=== PATIENT | male | born 1925 | race Caucasian/White ===

== ENCOUNTER 2016-08-23 05:10 | Inpatient (IN) | payer MEDICARE ==
[2016-08-23] VITALS (13 sets, daily range): BP systolic 101–149; BP diastolic 53–63; PULSE 83–114; RESP 15–20; TEMP 97.4–98.9; O2SAT 94–98
[~2016-08-23] VITALS: Ht 182.9 cm; Wt 75.0 kg
[~2016-08-23 05:10] MED LIST: ASPI81TA11 PO; CYCL1TAB29 PO; DILT31TA PO; FLEEENE3 PR; LIPI40TA PO; METO25TA3 PO; OYST500T11 PO; VITA100018 PO
[2016-08-23] MEDS ORDERED: POTA10TA2 PO (05:24)
[2016-08-23] MEDS ORDERED: ZETI10TA5 PO (05:24)
[2016-08-23] MEDS ORDERED: TRAM50TA PO (05:24)
[2016-08-23] MEDS ORDERED: SODIUM CHLORIDE 0.9% FLUSH 5 ML FLUSH IVF PRN (05:30)
[2016-08-23] MEDS ORDERED: PANTOPRAZOLE INJ 80 MG in SODIUM CHLORIDE 0.9% INJ 35 ML IV ONE (05:30)
[2016-08-23] MEDS: PANTOPRAZOLE INJ 80 MG in SODIUM CHLORIDE 0.9% INJ 100 ML IV SCH ×2 (05:46→15:55)
--- NOTE | 2016-08-23 05:54 | PD ---
HPI Chief Complaint: GI Complaint Time Seen by Provider: 05:22 Travel History International Travel<30 days: No Contact w/Intl Traveler<30days: No Traveled to known affect area: No History of Present Illness HPI 89-year-old male arrives from rehabilitation facility due to coffee-ground emesis and bright red bloody stool. GI bleed was first observed just prior to EMS arrival, at approximately 4:30 in the morning. EMS reports the patient became diaphoretic and minimally responsive for about 4 minutes or so. No rhythm strip was obtainable at that time. Heart rate on scene approximately 100 with a blood pressure approximately 120/60. Patient began speaking sentences following the brief interval apparent altered mental status/loss of consciousness. No focal deficit observed according to EMS. Patient takes aspirin however no other anticoagulant is listed. Pt is a DNR. PFSH Past Medical History Cancer: No Cardiovascular Problems: Yes High Cholesterol: Yes Cerebrovascular Accident: Yes Diminished Hearing: No Endocrine: No Gastrointestinal Disorders: Yes (hx of enema use, sometimes daily.) Genitourinary: No Hypertension: Yes Immune Disorder: No Musculoskeletal: No Neurologic: No Psychiatric: No Reproductive: No Respiratory: No Tetanus Vaccination: < 5 Years Influenza Vaccination: Yes Past Surgical History Abdominal Surgery: No Cardiac Surgery: No Ear Surgery: No Endocrine Surgery: No Eye Surgery: Yes Genitourinary Surgery: No Gynecologic Surgery: No Oral Surgery: No Thoracic Surgery: No Other Surgery: Yes Social History Alcohol Use: No Tobacco Use: No Substance Use: No Allergies-Medications (Allergen,Severity, Reaction): Coded Allergies: No Known Allergies (Verified , 08/23/16) Reported Meds & Prescriptions Reported Meds & Active Scripts Active Fleet Enema Rectal (Sodium Phosphates Rectal) 7-19 Gm/118 Ml Enem 133 Ml PA UNSCH PRN Oyster Shell Calcium (Oyster Shell) 500 Mg Tab 500 Mg PO Q12HR Metoprolol Tartrate 25 Mg Tab 25 Mg PO Q12HR Cardizem (Diltiazem HCl) 30 Mg Tab 30 Mg PO QID Vitamin D3 (Cholecalciferol) 1,000 Unit Tab 2,000 Units PO DAILY Lipitor (Atorvastatin Calcium) 40 Mg Tab 40 Mg PO HS Aspirin EC (Aspirin) 81 Mg Tabdr 162 Mg PO DAILY Reported Potassium Chloride ER (Potassium Chloride) 10 Meq Tab 10 Meq PO DAILY Tramadol (Tramadol HCl) 50 Mg Tab 50 Mg PO Q4H PRN Zetia (Ezetimibe) 10 Mg Tab 10 Mg PO DAILY Review of Systems Except as stated in HPI: all other systems reviewed are Neg General / Constitutional: No: Fever, Chills Physical Exam Narrative GENERAL: Well-nourished well-developed 89-year-old male no acute distress SKIN: Warm and dry. HEAD: Atraumatic. Normocephalic. EYES: Pupils equal and round. No scleral icterus. No injection or drainage. ENT: No nasal bleeding or discharge. Mucous membranes pink and moist. NECK: Trachea midline. No JVD. CARDIOVASCULAR: Heart rate regular. Mild tachycardia. RESPIRATORY: No accessory muscle use. Clear to auscultation. Breath sounds equal bilaterally. GASTROINTESTINAL: Abdomen soft, non-tender, nondistended. Hepatic and splenic margins not palpable. MUSCULOSKELETAL: No obvious deformities. No clubbing. No cyanosis. No edema. NEUROLOGICAL: Awake and alert. No obvious cranial nerve deficits. Motor grossly within normal limits. Normal speech. PSYCHIATRIC: Appropriate mood and affect; insight and judgment normal. Data Data Last Documented VS Vital Signs Date Time Temp Pulse Resp B/P Pulse Ox O2 Delivery O2 Flow Rate FiO2 08/23/16 05:17 16 08/23/16 05:15 97.7 96 126/59 95 Orders Basic Metabolic Panel (Bmp) (08/23/16 05:22) Complete Blood Count With Diff (08/23/16 05:22) Prothrombin Time / Inr (Pt) (08/23/16 05:22) Act Partial Throm Time (Ptt) (08/23/16 05:22) Type And Screen (08/23/16 05:22) Ecg Monitoring (08/23/16 05:22) Iv Access Insert/Monitor (08/23/16 05:22) Oximetry (08/23/16 05:22) Sodium Chloride 0.9% Flush (Ns Flush) (08/23/16 05:30) Pantoprazole Inj (Protonix Inj) (08/23/16 05:30) Pantoprazole Inj (Protonix Inj) (08/23/16 05:30) Chest, Single Ap (08/23/16 ) Urinalysis - C+S If Indicated (08/23/16 06:12) Blood Product Administration .UPON TRANSFUSION (08/23/16 06:12) Red Blood Cells (Rbc) (08/23/16 05:40) Protein Corrected Calcium(Pcc) (08/23/16 05:40) Red Blood Cells (Rbc) (08/23/16 06:38) Sodium Chlor 0.9% 250 Ml Inj (Ns 250 Ml (08/23/16 06:45) Admit Order (Ed Use Only) (08/23/16 06:43) Calcium Gluconate Inj (Calcium Gluconate (08/23/16 07:00) Ceftriaxone Inj (Rocephin Inj) (08/23/16 07:00) Consult Gastroenterology (08/23/16 ) Labs Laboratory Tests Test 08/23/16 05:40 White Blood Count 16.5 TH/MM3 Red Blood Count 2.66 MIL/MM3 Hemoglobin 8.2 GM/DL Hematocrit 25.5 % Mean Corpuscular Volume 95.6 FL Mean Corpuscular Hemoglobin 30.9 PG Mean Corpuscular Hemoglobin 32.3 % Concent Red Cell Distribution Width 14.3 % Platelet Count 248 TH/MM3 Mean Platelet Volume 9.0 FL Neutrophils (%) (Auto) 79.4 % Lymphocytes (%) (Auto) 12.3 % Monocytes (%) (Auto) 7.7 % Eosinophils (%) (Auto) 0.1 % Basophils (%) (Auto) 0.5 % Neutrophils # (Auto) 13.1 TH/MM3 Lymphocytes # (Auto) 2.0 TH/MM3 Monocytes # (Auto) 1.3 TH/MM3 Eosinophils # (Auto) 0.0 TH/MM3 Basophils # (Auto) 0.1 TH/MM3 CBC Comment DIFF FINAL Differential Comment Prothrombin Time 14.7 SEC Prothromb Time International 1.3 RATIO Ratio Activated Partial 28.6 SEC Thromboplast Time Sodium Level 141 MEQ/L Potassium Level 4.7 MEQ/L Chloride Level 107 MEQ/L Carbon Dioxide Level 20.2 MEQ/L Anion Gap 14 MEQ/L Blood Urea Nitrogen 40 MG/DL Creatinine 1.65 MG/DL Estimat Glomerular Filtration 40 ML/MIN Rate Random Glucose 115 MG/DL Calcium Level 6.3 MG/DL Blood Type A POSITIVE Antibody Screen NEGATIVE Crossmatch Leukocyte-Reduced Red Blood Cells Blood Bank Comment MDM Medical Decision Making Medical Screen Exam Complete: Yes Emergency Medical Condition: Yes Medical Record Reviewed: Yes Differential Diagnosis Lower GI bleed, upper GI bleed, anemia, arrhythmia, seizure, TIA, electrolyte imbalance, polypharmacy Narrative Course EKG reveals a sinus rhythm with rate of 92 normal axis and intervals artifact in lead III is observed CBC & BMP Diagram 08/23/16 05:40 Calcium 6.3 INR 1.3 1 unit PRBCs ordered. Protonix bolus and Protonix drip initiated. Calcium ordered. Admission for blood transfusion monitoring and GI evaluation. D/w Dr Haque. Critical Care Narrative Aggregate critical care time was 35 minutes. Time to perform other separately billable procedures was not included in the critical care time. My time did not include minutes spent treating any other patients simultaneously or on activities that did not directly contribute to the patient's treatment. The services I provided to this patient were to treat and/or prevent clinically significant deterioration that could result in: Hemorrhagic shock, multiorgan failure I provided critical care services requiring my management, as noted below: Chart data review, documentation time, medication orders and management, vital sign assessments/reviewing monitor data, ordering and reviewing lab tests, ordering and interpreting/reviewing x-rays and diagnostic studies, care of the patient and discussion of the patient with the admitting physicians. Diagnosis Primary Impression: GI bleed Qualified Code: K92.2 - Gastrointestinal hemorrhage, unspecified gastrointestinal hemorrhage type Additional Impression: Hypocalcemia Admitting Information Admitting Physician Requests: Bunny Quiroga MD Aug 23, 2016 05:54
[2016-08-23 05:55] LABS: AUTOMATED NEUTROPHIL # 13.1 TH/MM3 (1.8-7.7); BASOPHIL # 0.1 TH/MM3 (0-0.2); BASOPHIL % 0.5 % (0.0-2.0); EOSINOPHIL % 0.1 % (0.0-4.0); HEMATOCRIT 25.5 % (39.0-51.0); HEMO FLAGS DIFF FINAL; LYMPH % 12.3 % (9.0-44.0); MEAN CELL VOLUME 95.6 FL (80.0-100.0); MEAN CORPUSCULAR HEMOGLOBIN 30.9 PG (27.0-34.0); MEAN CORPUSCULAR HGB CONC 32.3 % (32.0-36.0); MONO % 7.7 % (0.0-8.0); NEUT % 79.4 % (16.0-70.0); PLATELET COUNT 248 TH/MM3 (150-450); RED BLOOD COUNT 2.66 MIL/MM3 (4.50-5.90); RED CELL DISTRIBUTION WIDTH 14.3 % (11.6-17.2); WHITE BLOOD COUNT 16.5 TH/MM3 (4.0-11.0)
--- NOTE | 2016-08-23 06:22 | RADRPT ---
EXAM DATE/TIME: 08/23/2016 04:08 [facility] COMPARISON: CT PULMONARY ANGIOGRAM, July 02, 2016, 12:46. CHEST SINGLE AP, October 18, 2012, 14:07. CHEST SIN GLE AP, July 10, 2016, 9:26. INDICATIONS : Abdominal cramping. MEDICAL HISTORY : Hypertension. Cardiovascular disease. SURGICAL HISTORY : None. ENCOUNTER: Initial ACUITY: 1 day PAIN SCORE: 0/10 LOCATION: Bilateral chest FINDINGS: Right lung is clear. There is patchy opacity in the left lung which is stable. Cardiomegaly and aorti c calcification. Pleural-based calcification left lung. CONCLUSION: Improved aeration on the right otherwise stable. Sumit Villafuerte MD on August 23, 2016 at 6:20 Board Certified Radiologist. This report was verified electronically.
[2016-08-23 06:26] LABS: APTT (PATIENT) 28.6 SEC (24.3-30.1); INTERNATIONAL NORMALIZED RATIO 1.3 RATIO; PROTHROMBIN TIME - PATIENT 14.7 SEC (9.8-11.6)
[2016-08-23 06:35] LABS: BICARBONATE 20.2 MEQ/L (21.0-32.0); POTASSIUM 4.7 MEQ/L (3.5-5.1)
[2016-08-23] MEDS ORDERED: SODIUM CHLOR 0.9% 250 ML INJ 250 ML IV ONE (06:45)
[2016-08-23] MEDS ORDERED: CALCIUM GLUCONATE 10% 1 GM/10 ML VIAL IV PUSH ONE (07:00)
[2016-08-23] MEDS ORDERED: cefTRIAXone INJ 1,000 MG in SODIUM CHLORIDE 0.9% INJ 100 ML IV ONE (07:00)
[2016-08-23 07:04] LABS: CALCIUM-PROTEIN CORRECTED 7.1 MG/DL (8.5-10.1)
--- NOTE | 2016-08-23 08:04 | EKG ---
Date Performed: 08/23/2016 Time Performed: 05:21:34 PTAGE: 89 years EKG: Marked baseline artifact Sinus rhythm MINIMAL ST DEPRESSION BORDERLINE ECG COMPARED TO PRIOR ELECTROCARDIOGRAM, Sinus rhythm has replaced atrial fibrillation. PREVIOUS TRACING : 07/03/2016 05.11 DOCTOR: Cyrus Kilgore Interpretating Date/Time 08/23/2016 08:03:21
--- NOTE | 2016-08-23 09:24 | PD.CONS ---
HPI History of Present Illness This is a 89 year old male with past medical history of HTN, A-fib, CKD who was sent from [facility] and rehab due to acute episode of coffee-ground emesis and bright red bloody stools at approximately 4:30 in the morning. Patient takes aspirin, he is not any other anticoagulant. Patient is alert and oriented, he denies vomiting, however, states the rectal bleeding was very bad and he had liquids stools last night. According to nurse, patient had one bloody stools in the ED, this was dark maroon about 300 ml. No more bleeding so far, patient denies any abdomen pain, fever, chills, shortness of breath, or difficulty breathing. No previous history of this. Hgb is 8.2, he received 2 units of blood , no repeat labs yet. He never had EGD/colonoscopy. Daughter in the room and case was discussed with her in details. (Evelyn Barnes) PFSH Past Medical History ME HTN A-fib CKD Past Surgical History eye surgery (Evelyn Barnes) Coded Allergies: No Known Allergies (Verified , 08/23/16) Medications Current Medications Medications (Trade) Dose Ordered Sig/Sana Route Start Time Stop Time Status Last Admin IV Flush 2 ml 2 ml UNSCH PRN IVF 08/23/16 05:30 Pantoprazole Sodium 80 mg/ Sodium Chloride 100 ml @ 10 mls/hr Q10H IV 08/23/16 05:30 08/23/16 05:46 (NS 250 ml Inj) 250 ml @ 15 mls/hr ONCE ONCE IV 08/23/16 06:45 08/23/16 23:24 Family History Non contributory Social History Denies smoking Drinks on occasions (Evelyn Barnes) Review of Systems Constitutional: DENIES: Fever, Chills Eyes: DENIES: Double Vision Ears, nose, mouth, throat: DENIES: Hoarseness Respiratory: DENIES: Shortness of breath Cardiovascular: DENIES: Lower Extremity Edema Gastrointestinal: COMPLAINS OF: Bloody stools, Nausea, Vomiting, Hematemesis, DENIES: Abdominal pain, Black stools, Constipation, Diarrhea, Difficulty Swallowing, Anorexia, Odynophagia, Swelling of Abdomen, Heartburn Genitourinary: DENIES: Hematuria Musculoskeletal: DENIES: Neck pain Integumentary: DENIES: Jaundice Hematologic/lymphatic: DENIES: Bruising Immunologic/allergic: DENIES: Eczema Neurologic: DENIES: Abnormal gait Psychiatric: DENIES: Anxiety (Evelyn BarnesP) GI Exam Vitals I&O Vital Signs Date Time Temp Pulse Resp B/P Pulse Ox O2 Delivery O2 Flow Rate FiO2 08/23/16 08:30 88 16 110/59 98 Nasal Cannula 2 08/23/16 07:00 96 Room Air 08/23/16 07:00 92 20 104/53 96 Room Air 08/23/16 05:17 16 08/23/16 05:15 97.7 96 16 126/59 95 Imaging Last Impressions Chest X-Ray 08/23/16 0000 Signed Impressions: Service Date/Time: August 04:08 - CONCLUSION: Improved aeration on the right otherwise stable. Sumit Villafuerte MD Laboratory Test 08/23/16 08/23/16 05:40 06:38 White Blood Count 16.5 TH/MM3 Red Blood Count 2.66 MIL/MM3 Hemoglobin 8.2 GM/DL Hematocrit 25.5 % Mean Corpuscular Volume 95.6 FL Mean Corpuscular Hemoglobin 30.9 PG Mean Corpuscular Hemoglobin 32.3 % Concent Red Cell Distribution Width 14.3 % Platelet Count 248 TH/MM3 Mean Platelet Volume 9.0 FL Neutrophils (%) (Auto) 79.4 % Lymphocytes (%) (Auto) 12.3 % Monocytes (%) (Auto) 7.7 % Eosinophils (%) (Auto) 0.1 % Basophils (%) (Auto) 0.5 % Neutrophils # (Auto) 13.1 TH/MM3 Lymphocytes # (Auto) 2.0 TH/MM3 Monocytes # (Auto) 1.3 TH/MM3 Eosinophils # (Auto) 0.0 TH/MM3 Basophils # (Auto) 0.1 TH/MM3 CBC Comment DIFF FINAL Differential Comment Prothrombin Time 14.7 SEC Prothromb Time International 1.3 RATIO Ratio Activated Partial 28.6 SEC Thromboplast Time Sodium Level 141 MEQ/L Potassium Level 4.7 MEQ/L Chloride Level 107 MEQ/L Carbon Dioxide Level 20.2 MEQ/L Anion Gap 14 MEQ/L Blood Urea Nitrogen 40 MG/DL Creatinine 1.65 MG/DL Estimat Glomerular Filtration 40 ML/MIN Rate Random Glucose 115 MG/DL Calcium Level 6.3 MG/DL Protein Corrected Calcium 7.1 MG/DL Total Protein 5.4 GM/DL Blood Type A POSITIVE A POSITIVE Antibody Screen NEGATIVE Crossmatch Leukocyte-Reduced Leukocyte-Reduced Red Blood Red Blood Cells Cells Blood Bank Comment Physical Examination HEENT: normocephalic; atraumatic; no jaundice. Throat is clear. NECK: Neck is supple, no JVD, no lymphadenopathy. CHEST: Chest is clear to auscultation and percussion. CARDIAC: Regular rate and rhythm with no murmur gallop or rubs. ABDOMEN: Soft, nondistended, nontender; no hepatosplenomegaly; bowel sounds are present in all four quadrants. EXTREMITIES: No clubbing, cyanosis, or edema. SKIN: Normal; no rash; no jaundice. 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 (Evelyn Barnes) Assessment and Plan Plan - Acute GI bleed/coffee ground emesis/ bloody stools started last night- Hgb is 8.2, he received 2 units of blood, no repeat labs yet. He never had EGD/ colonoscopy. Daughter in the room and case was discussed with her in details. Hemodynamically stable - HTN, CKD per attending Plan: - Clear liquids - EGD/colonoscopy in the am, details were discussed with daughter in room - cesarytely today - NPO mn - Monitor hh - Transfuse as needed - Notify GI for active bleed - Patient is seen and examined by Dr. Jimenes and myself and this note is written on his behalf. (Evelyn Barnes) Physician Comments Seen and examined with LELAND, came in for gi bleed. No active bleeding at this time. EGD/Colonoscopy tomorrow. Transfuse as needed, monitor H/H. Discussed with Pt. and daughter at the bedside. Thankyou (Adam Jimenes MD) Evelyn Barnes Aug 23, 2016 09:24 Adam Jimenes MD Aug 23, 2016 16:37
[2016-08-23] MEDS ORDERED: ENALAPRILAT 1.25 MG/ML VIAL IV PUSH PRN (09:30)
[2016-08-23] MEDS ORDERED: ONDANSETRON HCL 4 MG/2 ML VIAL IVP PRN (09:30)
[2016-08-23] MEDS ORDERED: SODIUM CHLORIDE 0.9% FLUSH 5 ML FLUSH FLUSH PRN (09:30)
[2016-08-23] MEDS ORDERED: NALOXONE HCL 0.4 MG/ML AMP IV PRN (09:30)
--- NOTE | 2016-08-23 13:50 | MB ---
cc: PRIMO OVALLE DO DATE OF CONSULTATION: August 23, 2016 REASON FOR CONSULTATION Risk assessment with GI bleed. HISTORY OF PRESENT ILLNESS Bunny Sigala is a pleasant 89-year-old male that I see in the office, who presented to [facility] on August 23, 2016 after having an acute episode of coffee-ground emesis and bloody stools at 4:30 this morning. I originally met Bunny back in June when he came in with an episode of atrial fibrillation and at that time was found to have an elevated troponin. We attempted to treat both medically and he was discharged on aspirin. I recently had seen him in the office and he has been doing well with physical therapy. He does have a break in his neck for which orthopedics felt that he may need surgery for. Had recently seen him for risk assessment before surgery and he underwent stress testing in my office. He did have a small area of mild to moderate ischemia of the inferior wall on the stress test. In seeing him at this time he is currently hemodynamically stable without chest pain or shortness of breath. Around 04:30 this morning per the records Bunny had a bloody stool and then had one episode of coffee-ground emesis. While in the emergency room he had one episode of a dark maroon stool. He is currently receiving blood at this time. PAST MEDICAL HISTORY 1. Myocardial infarction (June 2016). 2. Hypertension. 3. Paroxysmal atrial fibrillation. 4. Chronic kidney disease. 5. 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 6. Questionable history of TIA. PAST SURGICAL HISTORY Eye surgery. ALLERGIES NO KNOWN DRUG ALLERGIES. MEDICATIONS 1. Aspirin 81 mg daily. 2. Metoprolol tartrate 25 mg b.i.d. 3. Cardizem 30 mg q.i.d. 4. Zetia 10 mg daily. 5. Lipitor 40 mg every night. 6. Aspirin 162 mg daily. 7. Tramadol 50 mg every 4 hours as needed for pain. 8. Potassium 10 mEq daily. FAMILY HISTORY Denies premature coronary artery disease or sudden cardiac within the family. SOCIAL HISTORY The patient previously lived alone and did well with his activities of daily living. After his last event he has been in rehab. Denies tobacco or alcohol use. REVIEW OF SYSTEMS 14 systems were reviewed in the emergency room records and above pertinent positives and negatives above, otherwise negative. PHYSICAL EXAMINATION VITAL SIGNS: Temperature 98.1, heart rate 96, blood pressure 133/61, respirations 15, pulse ox 95% on 1 liter. GENERAL: In general the patient appears well, in no acute distress, alert, awake and oriented x3. HEENT: Extraocular muscles intact. Mucous membranes moist. NECK: Neck brace in place. HEART: Heart is regular rate and rhythm. Positive first and second heart sounds with no murmurs, gallops or rubs. PMI is nondisplaced. LUNGS: Clear to auscultation bilaterally. No wheezes, rales or rhonchi. ABDOMEN: Soft, nontender, nondistended. No organomegaly noted. EXTREMITIES: Show no clubbing, cyanosis or edema. Femoral and distal pulses intact bilaterally. NEUROLOGICALLY: No focal deficits. SKIN: Warm, dry and intact. OSTEOPATHIC: No kyphoscoliosis, lordosis or paraspinal tender points. LABORATORY FINDINGS Hemoglobin 8.2, hematocrit 25.5, platelets 248. Potassium 4.7, BUN 40, creatinine 1.65. IMPRESSION 1. Acute GI bleed most likely from a upper GI source. 2. Recent myocardial infarction (June 2016) which is currently being treated medically. 3. Recent stress test in my office (August 2016) showing a small area of mild to moderate perfusion defect in the basal and mid inferior wall, felt to be a low intermediate risk stress test. 4. Ejection fraction 55-60% with normal wall motion by echocardiogram (July 11, 2016). 5. Anemia due to GI bleed. 6. Leukocytosis most likely reactive. 7. 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 8. Paroxysmal atrial fibrillation for which the patient is on aspirin for anticoagulation. RECOMMENDATIONS 1. Bunny needs to undergo a upper and lower scope by GI due to his bleed. I feel that this is imperative as he is extremely symptomatic. 2. From a cardiovascular standpoint he would be moderate risk for the procedure and may proceed. He did have a recent myocardial infarction but since then had a stress test in my office which is a low the intermediate risk stress test. He has also been doing physical therapy which his daughter and I have talked about many times and it sounds that he is doing greater than 4 mets without chest pain or shortness of breath. 3. Once he is stabilized and blood pressure remains in a normal range, would try to get his metoprolol started again in case he does go back into atrial fibrillation. 4. Further recommendations will be made after upper and lower GI scoping. Thank you for allowing me to see Bunny Sigala, if there are any questions, please do not hesitate to call. Primo Ovalle DO VGP/TLL /12:39 PM /1:22 PM
--- NOTE | 2016-08-23 13:56 | HHI.HP ---
[facility] [place] Physician Garfield Borrego MD Admission Diagnosis GIB, Acute Anemia Diagnoses: (1) GI bleed (2) Anemia due to blood loss, acute (3) Hypocalcemia (4) CKD (chronic kidney disease) (5) Atrial fibrillation with rapid ventricular response (6) Benign hypertension (7) Hyperlipidemia (8) Leukocytosis Chief Complaint: GI bleed Travel History International Travel<30 Days: No Contact w/Intl Traveler <30 Da: No Traveled to Known Affected Are: No History of Present Illness 89-year-old male with a history of atrial fibrillation and currently on aspirin was brought to the ED for evaluation of an acute onset of GI bleed this morning as patient has episode of coffee-ground emesis as well as bright red blood per rectum. Patient has some mild abdominal pain without any radiation. He denies any associated shortness of breath or chest pain. Patient denies any prior history of GI bleed. Review of Systems Other Other 12 systems reviewed and are negative except for the one mentioned in history of present illness Past Family Social History Past Medical History [place] HTN Hyperlipidemia A-fib CKD Past Surgical History eye surgery Reported Medications 1. Aspirin 81 mg daily. 2. Metoprolol tartrate 25 mg b.i.d. 3. Cardizem 30 mg q.i.d. 4. Zetia 10 mg daily. 5. Lipitor 40 mg every night. 6. Aspirin 162 mg daily. 7. Tramadol 50 mg every 4 hours as needed for pain. 8. Potassium 10 mEq daily. Allergies: Coded Allergies: No Known Allergies (Verified , 08/23/16) Family History Dad had Pancreatic cancer Mother had lung cancer Social History Denies smoking Drinks on occasions Physical Exam Vital Signs Vital Signs Date Time Temp Pulse Resp B/P Pulse Ox O2 Delivery O2 Flow Rate FiO2 08/23/16 13:30 98.2 94 16 149/63 96 Nasal Cannula 1 08/23/16 12:30 98.3 85 16 125/60 96 Nasal Cannula 1 08/23/16 12:15 96 15 133/61 95 Nasal Cannula 1 08/23/16 12:00 90 16 122/59 95 Nasal Cannula 08/23/16 10:50 98.1 83 15 119/57 95 Nasal Cannula 1 08/23/16 10:35 98.1 92 15 104/57 96 Nasal Cannula 1 08/23/16 08:30 88 16 110/59 98 Nasal Cannula 2 08/23/16 07:00 96 Room Air 08/23/16 07:00 92 20 104/53 96 Room Air 08/23/16 05:17 16 08/23/16 05:15 97.7 96 16 126/59 95 Physical Exam GENERAL: This is a well-nourished, well-developed patient, in no apparent distress. SKIN: No rashes, ecchymoses or lesions. Cool and dry. HEAD: Atraumatic. Normocephalic. No temporal or scalp tenderness. EYES: Pupils equal round and reactive. Extraocular motions intact. No scleral icterus. No injection or drainage. ENT: Nose without bleeding, purulent drainage or septal hematoma. Throat without erythema, tonsillar hypertrophy or exudate. Uvula midline. Airway patent. NECK: Trachea midline. No JVD or lymphadenopathy. Supple, nontender, no meningeal signs. CARDIOVASCULAR: Regular rate and rhythm without murmurs, gallops, or rubs. RESPIRATORY: Clear to auscultation. Breath sounds equal bilaterally. No wheezes , rales, or rhonchi. GASTROINTESTINAL: Abdomen soft, non-tender, nondistended. No hepato-splenomegaly , or palpable masses. No guarding. MUSCULOSKELETAL: Extremities without clubbing, cyanosis, or edema. No joint tenderness, effusion, or edema noted. No calf tenderness. Negative Homans sign bilaterally. NEUROLOGICAL: Awake and alert. Cranial nerves II through XII intact. Motor and sensory grossly within normal limits. Five out of 5 muscle strength in all muscle groups. Normal speech. Laboratory Laboratory Tests Test 08/23/16 08/23/16 08/23/16 05:40 06:38 09:20 White Blood Count 16.5 Red Blood Count 2.66 Hemoglobin 8.2 Hematocrit 25.5 Mean Corpuscular Volume 95.6 Mean Corpuscular Hemoglobin 30.9 Mean Corpuscular Hemoglobin 32.3 Concent Red Cell Distribution Width 14.3 Platelet Count 248 Mean Platelet Volume 9.0 Neutrophils (%) (Auto) 79.4 Lymphocytes (%) (Auto) 12.3 Monocytes (%) (Auto) 7.7 Eosinophils (%) (Auto) 0.1 Basophils (%) (Auto) 0.5 Neutrophils # (Auto) 13.1 Lymphocytes # (Auto) 2.0 Monocytes # (Auto) 1.3 Eosinophils # (Auto) 0.0 Basophils # (Auto) 0.1 CBC Comment DIFF FINAL Differential Comment Prothrombin Time 14.7 Prothromb Time International 1.3 Ratio Activated Partial 28.6 Thromboplast Time Sodium Level 141 Potassium Level 4.7 Chloride Level 107 Carbon Dioxide Level 20.2 Anion Gap 14 Blood Urea Nitrogen 40 Creatinine 1.65 Estimat Glomerular Filtration 40 Rate Random Glucose 115 Calcium Level 6.3 Protein Corrected Calcium 7.1 Total Protein 5.4 Blood Type A POSITIVE A POSITIVE A POSITIVE Antibody Screen NEGATIVE Crossmatch Leukocyte-Reduced Leukocyte-Reduced Red Blood Red Blood Cells Cells Blood Bank Comment Result Diagram: 08/23/16 0540 08/23/16 0540 Imaging Last Impressions Chest X-Ray 08/23/16 0000 Signed Impressions: Service Date/Time: August 04:08 - CONCLUSION: Improved aeration on the right otherwise stable. Sumit Villafuerte MD Assessment and Plan Problem List: (1) GI bleed ICD Code: K92.2 Status: Acute (2) Anemia due to blood loss, acute ICD Code: D62 Status: Acute (3) CKD (chronic kidney disease) ICD Code: N18.9 Status: Acute (4) Atrial fibrillation with rapid ventricular response ICD Code: I48.91 Status: Acute Assessment and Plan 89-year-old male with 1-Acute GI bleed: Gastroenterology has been consulted and plan for panendoscopy 08/24/16. Currently on PPI drip and consider adding octreotide. Continue H&H monitoring. Hold aspirin 2-Anemia of acute blood loss: Transfused 2 units of blood or blood cell monitor H&H. Check iron profile 3-History of atrial fibrillation: Cardiology has been consulted and appreciate input. Resume Cardizem by mouth as well as Lopressor 4-Acute on chronic kidney disease: Likely secondary to volume lost, monitor BUN and creatinine and avoid all nephrotoxic drugs. May need gentle IV fluid hydration 5-Leukocytosis: Secondary to stress reactive; chest x-ray noted and reviewed by me and without any cardio pulmonary disease. UA pending. Monitor CBC 6-Hypertension: Currently normotensive, will resume Lopressor 7-Hyperlipidemia: Resume statin 8-DVT prophylaxis: Chemical anti-prophylaxis is contraindicated, bilateral SCDs 9-Hypocalcemia: Status post calcium gluconate 1, monitor electrolyte Code Status DO NOT RESUSCITATE Discussed Condition With Patient, daughter, ED physician, Physician Certification 2 Midnight Certification Type: Admission for Inpatient Services Order for Inpatient Services The services are ordered in accordance with Medicare regulations or non- Medicare payer requirements, as applicable. In the case of services not specified as inpatient-only, they are appropriately provided as inpatient services in accordance with the 2-midnight benchmark. Estimated LOS (days): 2 days is the estimated time the patient will need to remain in the hospital, assuming treatment plan goals are met and no additional complications. Post-Hospital Plan: Not yet determined Problem Qualifiers (1) GI bleed: Qualified Code: K92.2 - Gastrointestinal hemorrhage, unspecified gastrointestinal hemorrhage type Baljit Pennington MD Aug 23, 2016 13:56
[2016-08-23] MEDS ORDERED: RESP: ALBUTEROL 2.5 MG/IPRATROPIUM 0.5 MG NEB (PRN) NEB (14:15)
[2016-08-23] MEDS ORDERED: ONDANSETRON HCL 4 MG/2 ML VIAL IV PRN (14:15)
[2016-08-23] MEDS ORDERED: TEMAZEPAM 15 MG CAP PO PRN (14:15)
[2016-08-23] MEDS ORDERED: ACETAMINOPHEN 325 MG TAB PO PRN (14:15)
[2016-08-23 14:38] LABS: TRANSFERRIN IRON PROFILE 96 MG/DL (200-360)
[2016-08-23] MEDS ORDERED: PEG (High)/E-LYTE SOLN 4000 ML BTL PO ONE (16:00)
[2016-08-23] MEDS: DILTIAZEM HCL 30 MG TAB PO SCH ×2 (17:38→20:54)
[2016-08-23] MEDS: METOPROLOL TARTRATE 25 MG TAB PO SCH (20:52)
[2016-08-23] MEDS: ATORVASTATIN 40 MG TAB PO SCH (20:54)
[2016-08-23] MEDS: SODIUM CHLORIDE 0.9% FLUSH 5 ML FLUSH FLUSH SCH (20:54)
[2016-08-24] VITALS: BP 106/50; PULSE 80; RESP 20; TEMP 98.4; O2SAT 94
[2016-08-24] MEDS: PANTOPRAZOLE INJ 80 MG in SODIUM CHLORIDE 0.9% INJ 100 ML IV SCH ×3 (01:43→21:43)
[2016-08-24 04:00] VITALS: BP 123/49; PULSE 81; RESP 20; TEMP 98.6; O2SAT 93
[2016-08-24 05:28] LABS: AUTOMATED NEUTROPHIL # 8.2 TH/MM3 (1.8-7.7); BASOPHIL # 0.1 TH/MM3 (0-0.2); BASOPHIL % 0.9 % (0.0-2.0); EOSINOPHIL # 0.1 TH/MM3 (0-0.4); EOSINOPHIL % 0.5 % (0.0-4.0); HEMO FLAGS DIFF FINAL; LYMPH % 22.7 % (9.0-44.0); LYMPHOCYTE # 2.8 TH/MM3 (1.0-4.8); MEAN CELL VOLUME 90.7 FL (80.0-100.0); MEAN CORPUSCULAR HEMOGLOBIN 31.2 PG (27.0-34.0); MEAN CORPUSCULAR HGB CONC 34.4 % (32.0-36.0); MONO % 9.1 % (0.0-8.0); NEUT % 66.8 % (16.0-70.0); PLATELET COUNT 171 TH/MM3 (150-450); RED BLOOD COUNT 2.76 MIL/MM3 (4.50-5.90); RED CELL DISTRIBUTION WIDTH 15.5 % (11.6-17.2); WHITE BLOOD COUNT 12.3 TH/MM3 (4.0-11.0)
[2016-08-24 06:24] LABS: POTASSIUM 3.4 MEQ/L (3.5-5.1); TOTAL BILIRUBIN ADULT 0.4 MG/DL (0.2-1.0)
[2016-08-24 06:27] LABS: CALCIUM-PROTEIN CORRECTED 7.4 MG/DL (8.5-10.1)
[2016-08-24] MEDS ORDERED: POTASSIUM CL 40 MEQ/30 ML LIQ UDC PO ONE (06:45)
[2016-08-24] MEDS ORDERED: CALCIUM GLUCONATE INJ 1 GM in SODIUM CHLORIDE 0.9% INJ 90 ML IV ONE (06:45)
--- NOTE | 2016-08-24 06:46 | HHI.PR ---
Addendum to Inpatient Note Addendum Reason: Additional Documentation Additional Information Late Entry for 08/23/16 @ 2100 - Copy of [facility] DNR personally reviewed from patient's chart. It is dated 07/17/16, signed by Dr. Ambrosio, and signed by the patient personally. Code status order entered: DNR. . Jazmin Pickering Aug 24, 2016 06:46
[2016-08-24] MEDS ORDERED: POTASSIUM CHLOR 20 MEQ PREMIX 100 ML IV ONE (07:00)
[2016-08-24 08:00] VITALS: BP 121/56; PULSE 83; RESP 17; TEMP 98.6; O2SAT 93
[2016-08-24] MEDS: SODIUM CHLORIDE 0.9% FLUSH 5 ML FLUSH FLUSH SCH ×2 (08:00→21:43)
[2016-08-24] MEDS: METOPROLOL TARTRATE 25 MG TAB PO SCH ×2 (08:01→21:42)
[2016-08-24] MEDS: EZETIMIBE 10 MG TAB PO SCH (08:01)
[2016-08-24] MEDS: DILTIAZEM HCL 30 MG TAB PO SCH ×4 (08:01→21:42)
[2016-08-24] MEDS ORDERED: PROPOFOL 200 MG/20 ML AMP IV ONE ×2 (09:22)
--- NOTE | 2016-08-24 11:48 | HHI.PR ---
Subjective Remarks Follow-up upper GI bleed 08/24/16-patient seen and examined, status post panendoscopy. Denies any mole upper GI bleed since admission. Objective Vitals Vital Signs Date Time Temp Pulse Resp B/P Pulse Ox O2 Delivery O2 Flow Rate FiO2 08/24/16 09:51 83 20 107/42 99 08/24/16 09:46 79 20 102/48 97 08/24/16 09:41 97.4 83 20 117/46 98 08/24/16 08:00 98.6 83 17 121/56 93 08/24/16 04:00 98.6 81 20 123/49 93 08/24/16 00:00 98.4 80 20 106/50 94 08/23/16 20:56 100 08/23/16 20:00 98.9 114 20 102/58 94 08/23/16 16:00 97.4 98 17 124/60 94 08/23/16 14:22 97.9 84 17 101/53 96 08/23/16 13:30 98.2 94 16 149/63 96 Nasal Cannula 1 08/23/16 12:30 98.3 85 16 125/60 96 Nasal Cannula 1 08/23/16 12:15 96 15 133/61 95 Nasal Cannula 1 08/23/16 12:00 90 16 122/59 95 Nasal Cannula I/O 08/23/16 08/23/16 08/23/16 08/24/16 08/24/16 08/24/16 07:00 15:00 23:00 07:00 15:00 23:00 Intake Total 610 ml 288 ml 46 ml 825 ml Output Total 200 ml 2300 ml 400 ml Balance 410 ml -2012 ml -354 ml 825 ml Intake Oral 240 ml 0 ml IV Total 110 ml 48 ml 46 ml 825 ml Packed Cells 500 ml Output Urine Total 1300 ml 400 ml Stool Total 200 ml 1000 ml # Bowel Movements 1 1 3 Result Diagram: 08/24/16 0325 08/24/16 0325 Imaging Last Impressions Chest X-Ray 08/23/16 0000 Signed Impressions: Service Date/Time: August 04:08 - CONCLUSION: Improved aeration on the right otherwise stable. Sumit Villafuerte MD Objective Remarks GENERAL: NAD SKIN: Warm and dry. HEAD: Normocephalic. EYES: No scleral icterus. No injection or drainage. NECK: Supple, trachea midline. No JVD or lymphadenopathy. CARDIOVASCULAR: Regular rate and rhythm without murmurs, gallops, or rubs. RESPIRATORY: Breath sounds equal bilaterally. No accessory muscle use. GASTROINTESTINAL: Abdomen soft, non-tender, nondistended. MUSCULOSKELETAL: No cyanosis, or edema. BACK: Nontender without obvious deformity. No CVA tenderness. A/P Problem List: (1) GI bleed ICD Code: K92.2 Status: Acute (2) Anemia due to blood loss, acute ICD Code: D62 Status: Acute (3) Hypocalcemia ICD Code: E83.51 Status: Acute (4) CKD (chronic kidney disease) ICD Code: N18.9 Status: Acute (5) Atrial fibrillation with rapid ventricular response ICD Code: I48.91 Status: Acute (6) Benign hypertension ICD Code: I10 Status: Acute (7) Hyperlipidemia ICD Code: E78.5 Status: Acute (8) Leukocytosis ICD Code: D72.829 Status: Acute Assessment and Plan 89-year-old male with 1-Acute GI bleed: Gastroenterology has been consulted and patient is s/p panendoscopy 08/24/16 with cauterization of duodenal ulcer. Currently on PPI drip and . Continue H&H monitoring. Hold aspirin 2-Anemia of acute blood loss: Transfused 2 units of blood or blood cell monitor H&H. Check iron profile 3-History of atrial fibrillation: Cardiology has been consulted and appreciate input. Continue Cardizem by mouth as well as Lopressor 4-Acute on chronic kidney disease: Likely secondary to volume lost, monitor BUN and creatinine and avoid all nephrotoxic drugs. 5-Leukocytosis: Secondary to stress reactive; chest x-ray noted and reviewed by me and without any cardio pulmonary disease. UA pending. Monitor CBC 6-Hypertension: Currently normotensive on Lopressor 7-Hyperlipidemia: on statin 8-DVT prophylaxis: Chemical anti-prophylaxis is contraindicated, bilateral SCDs 9-Hypocalcemia: We will give calcium gluconate 1, monitor electrolyte 10-Hypokalemia: Replaced electrolyte with 60 mEq of potassium Problem Qualifiers (1) GI bleed: Qualified Code: K92.2 - Gastrointestinal hemorrhage, unspecified gastrointestinal hemorrhage type Baljit Pennington MD Aug 24, 2016 11:48
[2016-08-24 12:00] VITALS: BP 131/62; PULSE 85; RESP 16; TEMP 98.1; O2SAT 92
[2016-08-24] MEDS ORDERED: POTASSIUM CHLORIDE 10 MEQ CONTROLLED RELEASE TAB PO ONE (12:00)
[2016-08-24] MEDS ORDERED: CALCIUM GLUCONATE INJ 1 GM in SODIUM CHLORIDE 0.9% INJ 100 ML IV ONE (13:00)
[2016-08-24 16:00] VITALS: BP 127/58; PULSE 88; RESP 17; TEMP 98.3; O2SAT 95
--- NOTE | 2016-08-24 18:24 | PD.CARD.PN ---
Subjective Subjective Remarks Patient seen earlier, no chest pain, no shortness of breath Panendoscopy, gastric ulcer s/p cauterization Objective Medications Current Medications Medications (Trade) Dose Ordered Sig/Sana Route Start Time Stop Time Status Last Admin (Protonix Inj/NS Inj) 100 ml @ 10 mls/hr Q10H IV 08/23/16 05:30 08/24/16 11:30 (NS Flush) 2 ml UNSCH PRN FLUSH 08/23/16 09:30 (NS Flush) 2 ml BID FLUSH 08/23/16 21:00 08/24/16 08:00 (Zofran Inj) 4 mg Q6H PRN IVP 08/23/16 09:30 08/23/16 17:38 (Narcan Inj) 0.4 mg UNSCH PRN IV 08/23/16 09:30 (Vasotec Inj) 1.25 mg Q6H PRN IV PUSH 08/23/16 09:30 (Tylenol) 650 mg Q4H PRN PO 08/23/16 14:15 (Restoril) 15 mg HS PRN PO 08/23/16 14:15 (Lipitor) 40 mg HS PO 08/23/16 21:00 08/23/16 20:54 (Cardizem) 30 mg QID PO 08/23/16 18:00 08/24/16 13:03 (Zetia) 10 mg DAILY PO 08/24/16 09:00 08/24/16 08:01 (Lopressor) 25 mg Q12HR PO 08/23/16 21:00 08/24/16 08:01 Vital Signs / I&O Vital Signs Date Time Temp Pulse Resp B/P Pulse Ox O2 Delivery O2 Flow Rate FiO2 08/24/16 16:00 98.3 88 17 127/58 95 08/24/16 12:00 98.1 85 16 131/62 92 08/24/16 09:51 83 20 107/42 99 08/24/16 09:46 79 20 102/48 97 08/24/16 09:41 97.4 83 20 117/46 98 08/24/16 08:00 98.6 83 17 121/56 93 08/24/16 04:00 98.6 81 20 123/49 93 08/24/16 00:00 98.4 80 20 106/50 94 08/23/16 20:56 100 08/23/16 20:00 98.9 114 20 102/58 94 I/O 08/23/16 08/23/16 08/23/16 08/24/16 08/24/16 08/24/16 07:00 15:00 23:00 07:00 15:00 23:00 Intake Total 610 ml 288 ml 46 ml 2205 ml Output Total 200 ml 2300 ml 400 ml 350 ml Balance 410 ml -2012 ml -354 ml 1855 ml Intake Oral 240 ml 0 ml 1380 ml IV Total 110 ml 48 ml 46 ml 825 ml Packed Cells 500 ml Output Urine Total 1300 ml 400 ml 350 ml Stool Total 200 ml 1000 ml # Bowel Movements 1 1 3 1 Physical Exam GENERAL: NAD SKIN: Warm and dry. HEAD: Atraumatic. Normocephalic. EYES: Pupils equal and round. No scleral icterus. No injection or drainage. ENT: No nasal bleeding or discharge. Mucous membranes pink and moist. NECK: Neck brace in place CARDIOVASCULAR: Regular rate and rhythm. RESPIRATORY: No accessory muscle use. Clear to auscultation. Breath sounds equal bilaterally. GASTROINTESTINAL: Abdomen soft, non-tender, nondistended. Hepatic and splenic margins not palpable. MUSCULOSKELETAL: Extremities without clubbing, cyanosis, or edema. No obvious deformities. NEUROLOGICAL: Awake and alert. No obvious cranial nerve deficits. Motor grossly within normal limits. Five out of 5 muscle strength in the arms and legs. Normal speech. PSYCHIATRIC: Appropriate mood and affect; insight and judgment normal. Laboratory Laboratory Tests Test 08/24/16 03:25 White Blood Count 12.3 TH/MM3 Red Blood Count 2.76 MIL/MM3 Hemoglobin 8.6 GM/DL Hematocrit 25.0 % Mean Corpuscular Volume 90.7 FL Mean Corpuscular Hemoglobin 31.2 PG Mean Corpuscular Hemoglobin 34.4 % Concent Red Cell Distribution Width 15.5 % Platelet Count 171 TH/MM3 Mean Platelet Volume 9.3 FL Neutrophils (%) (Auto) 66.8 % Lymphocytes (%) (Auto) 22.7 % Monocytes (%) (Auto) 9.1 % Eosinophils (%) (Auto) 0.5 % Basophils (%) (Auto) 0.9 % Neutrophils # (Auto) 8.2 TH/MM3 Lymphocytes # (Auto) 2.8 TH/MM3 Monocytes # (Auto) 1.1 TH/MM3 Eosinophils # (Auto) 0.1 TH/MM3 Basophils # (Auto) 0.1 TH/MM3 CBC Comment DIFF FINAL Differential Comment Sodium Level 143 MEQ/L Potassium Level 3.4 MEQ/L Chloride Level 108 MEQ/L Carbon Dioxide Level 24.0 MEQ/L Anion Gap 11 MEQ/L Blood Urea Nitrogen 63 MG/DL Creatinine 1.26 MG/DL Estimat Glomerular Filtration 54 ML/MIN Rate Random Glucose 87 MG/DL Calcium Level 6.6 MG/DL Protein Corrected Calcium 7.4 MG/DL Phosphorus Level 3.7 MG/DL Total Bilirubin 0.4 MG/DL Aspartate Amino Transf 14 U/L (AST/SGOT) Alanine Aminotransferase 13 U/L (ALT/SGPT) Alkaline Phosphatase 37 U/L Total Protein 5.4 GM/DL Albumin 2.2 GM/DL Assessment and Plan Problem List: (1) GI bleed (2) CKD (chronic kidney disease) (3) Benign hypertension (4) Atrial fibrillation Assessment and Plan 1) GI bleed s/p cauterization of gastric ulcer, previously symptomatic anemia 2) Atrial fibrillation, not an anticoagulation candidate due to GI bleed, continue rate control meds, currently sinus rhythm 3) Previous NSTEMI, medical management 4) Safely add ASA back when possible per GI 5) Will see PRN, please call with questions Problem Qualifiers (1) GI bleed: Qualified Code: K92.2 - Gastrointestinal hemorrhage, unspecified gastrointestinal hemorrhage type Primo Bhatt DO Aug 24, 2016 18:24
[2016-08-24 20:00] VITALS: BP 116/50; PULSE 99; RESP 16; TEMP 96.7; O2SAT 94
[2016-08-24] MEDS: ATORVASTATIN 40 MG TAB PO SCH (21:00)
[2016-08-25] VITALS (7 sets, daily range): BP systolic 103–130; BP diastolic 49–62; PULSE 73–87; RESP 16–20; TEMP 97.9–98.8; O2SAT 92–96
[2016-08-25 05:07] LABS: AUTOMATED NEUTROPHIL # 4.7 TH/MM3 (1.8-7.7); BASOPHIL # 0.1 TH/MM3 (0-0.2); BASOPHIL % 1.2 % (0.0-2.0); EOSINOPHIL # 0.2 TH/MM3 (0-0.4); EOSINOPHIL % 2.7 % (0.0-4.0); HEMATOCRIT 22.3 % (39.0-51.0); HEMO FLAGS DIFF FINAL; LYMPH % 26.6 % (9.0-44.0); LYMPHOCYTE # 2.1 TH/MM3 (1.0-4.8); MEAN CELL VOLUME 91.9 FL (80.0-100.0); MEAN CORPUSCULAR HEMOGLOBIN 31.8 PG (27.0-34.0); MEAN CORPUSCULAR HGB CONC 34.6 % (32.0-36.0); MONO % 9.5 % (0.0-8.0); PLATELET COUNT 154 TH/MM3 (150-450); RED BLOOD COUNT 2.42 MIL/MM3 (4.50-5.90); RED CELL DISTRIBUTION WIDTH 15.2 % (11.6-17.2); WHITE BLOOD COUNT 7.8 TH/MM3 (4.0-11.0)
[2016-08-25 05:31] LABS: BICARBONATE 24.9 MEQ/L (21.0-32.0); POTASSIUM 3.6 MEQ/L (3.5-5.1)
[2016-08-25 05:48] LABS: CALCIUM-PROTEIN CORRECTED 7.5 MG/DL (8.5-10.1)
[2016-08-25] MEDS: PANTOPRAZOLE INJ 80 MG in SODIUM CHLORIDE 0.9% INJ 100 ML IV SCH ×2 (07:34→17:25)
[2016-08-25] MEDS: DILTIAZEM HCL 30 MG TAB PO SCH ×4 (07:35→22:43)
[2016-08-25] MEDS: METOPROLOL TARTRATE 25 MG TAB PO SCH ×2 (07:35→22:45)
[2016-08-25] MEDS: EZETIMIBE 10 MG TAB PO SCH (07:35)
[2016-08-25] MEDS: SODIUM CHLORIDE 0.9% FLUSH 5 ML FLUSH FLUSH SCH ×2 (07:35→22:45)
--- NOTE | 2016-08-25 14:10 | HHI.PR ---
Subjective Remarks Follow-up upper GI bleed 08/24/16-patient seen and examined, status post panendoscopy. Denies any mole upper GI bleed since admission. 08/25/16-patient seen and examined; no GI bleed and stable. Patient states he would like to be discharged to [place]. No chest pain or shortness of breath. Objective Vitals Vital Signs Date Time Temp Pulse Resp B/P Pulse Ox O2 Delivery O2 Flow Rate FiO2 08/25/16 12:00 97.9 80 16 129/59 94 08/25/16 08:00 98.1 73 16 120/57 94 08/25/16 04:00 98.8 83 18 108/50 93 08/25/16 00:00 98.1 87 16 117/49 94 08/24/16 20:00 96.7 99 16 116/50 94 08/24/16 16:00 98.3 88 17 127/58 95 I/O 08/24/16 08/24/16 08/24/16 08/25/16 08/25/16 08/25/16 07:00 15:00 23:00 07:00 15:00 23:00 Intake Total 46 ml 2205 ml 580 ml 120 ml 580 ml Output Total 400 ml 350 ml 300 ml 450 ml Balance -354 ml 1855 ml 280 ml -330 ml 580 ml Intake Oral 0 ml 1380 ml 480 ml 120 ml IV Total 46 ml 825 ml 100 ml 580 ml Output Urine Total 400 ml 350 ml 300 ml 450 ml # Bowel Movements 3 1 1 0 Result Diagram: 08/25/16 0320 08/25/16 0320 Imaging Last Impressions Chest X-Ray 08/23/16 0000 Signed Impressions: Service Date/Time: August 04:08 - CONCLUSION: Improved aeration on the right otherwise stable. Sumit Villafuerte MD Objective Remarks GENERAL: NAD SKIN: Warm and dry. HEAD: Normocephalic. EYES: No scleral icterus. No injection or drainage. NECK: Supple, trachea midline. No JVD or lymphadenopathy. CARDIOVASCULAR: Regular rate and rhythm without murmurs, gallops, or rubs. RESPIRATORY: Breath sounds equal bilaterally. No accessory muscle use. GASTROINTESTINAL: Abdomen soft, non-tender, nondistended. MUSCULOSKELETAL: No cyanosis, or edema. BACK: Nontender without obvious deformity. No CVA tenderness. A/P Problem List: (1) GI bleed ICD Code: K92.2 Status: Acute (2) Anemia due to blood loss, acute ICD Code: D62 Status: Acute (3) Hypocalcemia ICD Code: E83.51 Status: Acute (4) CKD (chronic kidney disease) ICD Code: N18.9 Status: Acute (5) Atrial fibrillation with rapid ventricular response ICD Code: I48.91 Status: Acute (6) Benign hypertension ICD Code: I10 Status: Acute (7) Hyperlipidemia ICD Code: E78.5 Status: Acute (8) Leukocytosis ICD Code: D72.829 Status: Acute Assessment and Plan 89-year-old male with 1-Acute GI bleed: Gastroenterology has been consulted and patient is s/p panendoscopy 08/24/16 with cauterization of duodenal ulcer. Change to by mouth PPI . Continue H&H monitoring. Resume aspirin 2-Anemia of acute blood loss: Transfused 2 units of blood or blood cell monitor H&H. 3-History of atrial fibrillation: Cardiology has been consulted and appreciate input. Continue Cardizem by mouth as well as Lopressor 4-Acute on chronic kidney disease: Likely secondary to volume lost, monitor BUN and creatinine and avoid all nephrotoxic drugs. 5-Leukocytosis: Secondary to stress reactive; chest x-ray noted and reviewed by me and without any cardio pulmonary disease. Monitor CBC 6-Hypertension: Currently normotensive on Lopressor 7-Hyperlipidemia: on statin 8-DVT prophylaxis: Chemical anti-prophylaxis is contraindicated, bilateral SCDs 9-Hypocalcemia: Resolved 10-Hypokalemia: Resolved Problem Qualifiers (1) GI bleed: Qualified Code: K92.2 - Gastrointestinal hemorrhage, unspecified gastrointestinal hemorrhage type Baljit Pennington MD Aug 25, 2016 14:10
[2016-08-25] MEDS ORDERED: PROT40TA PO (14:12)
[2016-08-25] MEDS ORDERED: TRAM50TA PO (14:12)
--- NOTE | 2016-08-25 14:16 | HHI.DS ---
Discharge Summary Admission Date Aug 23, 2016 at 06:46 Discharge Date: Aug 26, 2016 Admitting Diagnosis GIB, Acute Anemia (1) GI bleed ICD Code: K92.2 (2) Anemia due to blood loss, acute ICD Code: D62 (3) Hypocalcemia ICD Code: E83.51 (4) CKD (chronic kidney disease) ICD Code: N18.9 (5) Atrial fibrillation with rapid ventricular response ICD Code: I48.91 (6) Benign hypertension ICD Code: I10 (7) Hyperlipidemia ICD Code: E78.5 (8) Leukocytosis ICD Code: D72.829 Procedures Panendoscopy Brief History - From Admission 89-year-old male with a history of atrial fibrillation and currently on aspirin was brought to the ED for evaluation of an acute onset of GI bleed this morning as patient has episode of coffee-ground emesis as well as bright red blood per rectum. Patient has some mild abdominal pain without any radiation. He denies any associated shortness of breath or chest pain. Patient denies any prior history of GI bleed. CBC/BMP: 08/25/16 0320 08/25/16 0320 Significant Findings Laboratory Tests Test 08/23/16 08/24/16 08/25/16 05:40 03:25 03:20 White Blood Count 16.5 TH/MM3 12.3 TH/MM3 (4.0-11.0) (4.0-11.0) Red Blood Count 2.66 MIL/MM3 2.76 MIL/MM3 2.42 MIL/MM3 (4.50-5.90) (4.50-5.90) (4.50-5.90) Hemoglobin 8.2 GM/DL 8.6 GM/DL 7.7 GM/DL (13.0-17.0) (13.0-17.0) (13.0-17.0) Hematocrit 25.5 % 25.0 % 22.3 % (39.0-51.0) (39.0-51.0) (39.0-51.0) Neutrophils (%) (Auto) 79.4 % (16.0-70.0) Neutrophils # (Auto) 13.1 TH/MM3 8.2 TH/MM3 (1.8-7.7) (1.8-7.7) Monocytes # (Auto) 1.3 TH/MM3 1.1 TH/MM3 (0-0.9) (0-0.9) Prothrombin Time 14.7 SEC (9.8-11.6) Carbon Dioxide Level 20.2 MEQ/L (21.0-32.0) Blood Urea Nitrogen 40 MG/DL (7-18) 63 MG/DL (7-18) 31 MG/DL (7-18) Creatinine 1.65 MG/DL (0.60-1.30) Estimat Glomerular Filtration 40 ML/MIN (>89) 54 ML/MIN (>89) 65 ML/MIN (>89) Rate Random Glucose 115 MG/DL (74-106) Calcium Level 6.3 MG/DL 6.6 MG/DL 6.7 MG/DL (8.5-10.1) (8.5-10.1) (8.5-10.1) Protein Corrected Calcium 7.1 MG/DL 7.4 MG/DL 7.5 MG/DL (8.5-10.1) (8.5-10.1) (8.5-10.1) Total Iron Binding Capacity 134 MCG/DL (250-450) Total Protein 5.4 GM/DL 5.4 GM/DL 5.4 GM/DL (6.4-8.2) (6.4-8.2) (6.4-8.2) Monocytes (%) (Auto) 9.1 % (0.0-8.0) 9.5 % (0.0-8.0) Potassium Level 3.4 MEQ/L (3.5-5.1) Chloride Level 108 MEQ/L 110 MEQ/L (98-107) (98-107) Aspartate Amino Transf 14 U/L (15-37) (AST/SGOT) Alkaline Phosphatase 37 U/L (45-117) Albumin 2.2 GM/DL (3.4-5.0) Imaging Last Impressions Chest X-Ray 08/23/16 0000 Signed Impressions: Service Date/Time: August 04:08 - CONCLUSION: Improved aeration on the right otherwise stable. Sumit Villafuerte MD PE at Discharge GENERAL: NAD SKIN: Warm and dry. HEAD: Normocephalic. EYES: No scleral icterus. No injection or drainage. NECK: Supple, trachea midline. No JVD or lymphadenopathy. CARDIOVASCULAR: Regular rate and rhythm without murmurs, gallops, or rubs. RESPIRATORY: Breath sounds equal bilaterally. No accessory muscle use. GASTROINTESTINAL: Abdomen soft, non-tender, nondistended. MUSCULOSKELETAL: No cyanosis, or edema. BACK: Nontender without obvious deformity. No CVA tenderness. Hospital Course Patient was admitted secondary to acute GI bleed 4 weeks gastroenterology was consulted and patient underwent panendoscopy on 08/24/16 with cauterization of duodenal ulcer. He was started on PPI drip. Secondary to anemia of acute blood loss patient was transfused 2 units PRBC with monitoring of H&H. Cardiology was consulted due to his history of atrial fibrillation and patient was continued on his medications including Cardizem. All electrolyte abnormalities were corrected accordingly. PT was consulted. Patient other chronic medical conditions were treated accordingly. Vitals remained stable and patient condition improved prior to discharge. Will resume aspirin. Pt Condition on Discharge: Fair Discharge Disposition: Discharge to SNF Discharge Time: > 30 minutes Discharge Instructions Follow up Referrals: Gastroenterology PCP Follow-up - 2-3 Days New Medications: Pantoprazole (Protonix) 40 Mg Tab 40 MG PO DAILY Reflux #30 Ref 0 TAB Tramadol (Tramadol) 50 Mg Tab 50 MG PO Q8H PRN PAIN #20 Ref 0 TAB Continued Medications: Aspirin DR (Aspirin EC) 81 Mg Tabdr 162 MG PO DAILY Heart #30 TAB Atorvastatin (Lipitor) 40 Mg Tab 40 MG PO HS Cholesterol Management #30 TAB Cholecalciferol (Vitamin D3) 1,000 Unit Tab 2000 UNITS PO DAILY Vitamin #30 TAB Diltiazem (Cardizem) 30 Mg Tab 30 MG PO QID Heart #120 TAB Ezetimibe (Zetia) 10 Mg Tab 10 MG PO DAILY #30 Ref 0 TAB Metoprolol Tartrate (Metoprolol Tartrate) 25 Mg Tab 25 MG PO Q12HR Heart #60 TAB Oyster Shell (Oyster Shell Calcium) 500 Mg Tab 500 MG PO Q12HR Supplement #60 TAB Potassium Chloride ER (Potassium Chloride ER) 10 Meq Tab 10 MEQ PO DAILY Electrolyte Replacement #30 Ref 0 TAB Discontinued Medications: Sodium Phosphates Rectal (Fleet Enema Rectal) 7-19 Gm/118 Ml Enem 133 ML [place] UNSCH PRN CONSTIPATION #30 ML Tramadol (Tramadol) 50 Mg Tab 50 MG PO Q4H PRN PAIN Ref 0 TAB Baljit Pennington MD Aug 25, 2016 14:16
[2016-08-25] MEDS: ATORVASTATIN 40 MG TAB PO SCH (21:00)
[2016-08-26] MEDS: PANTOPRAZOLE INJ 80 MG in SODIUM CHLORIDE 0.9% INJ 100 ML IV SCH (03:30)
[2016-08-26 04:00] VITALS: BP 140/79; PULSE 77; RESP 20; TEMP 97.8; O2SAT 94
[2016-08-26 08:00] VITALS: BP 134/58; PULSE 69; RESP 17; TEMP 97.5; O2SAT 92
[2016-08-26] MEDS: EZETIMIBE 10 MG TAB PO SCH (08:30)
[2016-08-26] MEDS: DILTIAZEM HCL 30 MG TAB PO SCH (08:30)
[2016-08-26] MEDS: METOPROLOL TARTRATE 25 MG TAB PO SCH (08:31)
[2016-08-26] MEDS: SODIUM CHLORIDE 0.9% FLUSH 5 ML FLUSH FLUSH SCH (08:31)
[2016-08-26] MEDS ORDERED: ASPIRIN EC 81 MG TABEC PO SCH (09:00)
--- NOTE | 2016-08-26 10:26 | HHI.PR ---
Subjective Remarks Follow-up upper GI bleed 08/24/16-patient seen and examined, status post panendoscopy. Denies any mole upper GI bleed since admission. 08/25/16-patient seen and examined; no GI bleed and stable. Patient states he would like to be discharged to [facility]. No chest pain or shortness of breath. 08/26/16-patient seen and examined; stable and no complaint. Daughter by the bedside. Looking for discharge to [facility]. No GI bleed. Objective Vitals Vital Signs Date Time Temp Pulse Resp B/P Pulse Ox O2 Delivery O2 Flow Rate FiO2 08/26/16 08:00 97.5 69 17 134/58 92 08/26/16 04:00 97.8 77 20 140/79 94 08/25/16 23:49 98.6 76 20 127/62 92 08/25/16 20:00 98.6 85 19 130/62 92 08/25/16 16:00 98.0 86 17 103/59 96 08/25/16 12:00 97.9 80 16 129/59 94 I/O 08/25/16 08/25/16 08/25/16 08/26/16 08/26/16 08/26/16 07:00 15:00 23:00 07:00 15:00 23:00 Intake Total 120 ml 1780 ml 329 ml 120 ml Output Total 450 ml 725 ml 300 ml 200 ml Balance -330 ml 1055 ml 29 ml -80 ml Intake Oral 120 ml 1200 ml 240 ml 120 ml IV Total 580 ml 89 ml Output Urine Total 450 ml 725 ml 300 ml 200 ml # Bowel Movements 0 2 0 0 Result Diagram: 08/25/16 0320 08/25/16 0320 Objective Remarks GENERAL: NAD SKIN: Warm and dry. HEAD: Normocephalic. EYES: No scleral icterus. No injection or drainage. NECK: Supple, trachea midline. No JVD or lymphadenopathy. CARDIOVASCULAR: Regular rate and rhythm without murmurs, gallops, or rubs. RESPIRATORY: Breath sounds equal bilaterally. No accessory muscle use. GASTROINTESTINAL: Abdomen soft, non-tender, nondistended. MUSCULOSKELETAL: No cyanosis, or edema. BACK: Nontender without obvious deformity. No CVA tenderness. Procedures Panendoscopy A/P Problem List: (1) GI bleed ICD Code: K92.2 Status: Acute (2) Anemia due to blood loss, acute ICD Code: D62 Status: Acute (3) Hypocalcemia ICD Code: E83.51 Status: Acute (4) CKD (chronic kidney disease) ICD Code: N18.9 Status: Acute (5) Atrial fibrillation with rapid ventricular response ICD Code: I48.91 Status: Acute (6) Benign hypertension ICD Code: I10 Status: Acute (7) Hyperlipidemia ICD Code: E78.5 Status: Acute (8) Leukocytosis ICD Code: D72.829 Status: Acute Assessment and Plan 89-year-old male with 1-Acute GI bleed: Gastroenterology has been consulted and patient is s/p panendoscopy 08/24/16 with cauterization of duodenal ulcer. on PPI . Continue H&H monitoring. continue aspirin 2-Anemia of acute blood loss: Transfused 2 units of blood or blood cell monitor H&H. 3-History of atrial fibrillation: Cardiology has been consulted and appreciate input. Continue Cardizem by mouth as well as Lopressor 4-Acute on chronic kidney disease: Likely secondary to volume lost, monitor BUN and creatinine and avoid all nephrotoxic drugs. 5-Leukocytosis: Secondary to stress reactive; chest x-ray noted and reviewed by me and without any cardio pulmonary disease. Monitor CBC 6-Hypertension: Currently normotensive on Lopressor 7-Hyperlipidemia: on statin 8-DVT prophylaxis: Chemical anti-prophylaxis is contraindicated, bilateral SCDs 9-Hypocalcemia: Resolved 10-Hypokalemia: Resolved 11-Neck radiculopathy: Follow outpatient with orthopedic surgery Discharge Planning Discharged to [facility] Problem Qualifiers (1) GI bleed: Qualified Code: K92.2 - Gastrointestinal hemorrhage, unspecified gastrointestinal hemorrhage type Baljit Pennington MD Aug 26, 2016 10:26
== END 2016-08-26 11:16 | DRG 378 ==
LOC: NEPE 05:10 → NEDA 06:46 → N07A 14:29
PROVIDERS: ADMIT Hospitalist; ATTEND Hospitalist
PROC: 30233N1 Transfusion of Nonautologous Red Blood Cells into Peripheral Vein, Percutaneous Approach (ICD-10-PCS; 2016-08-23)
PROC: 0D598ZZ Destruction of Duodenum, Via Natural or Artificial Opening Endoscopic (ICD-10-PCS; principal; 2016-08-24 09:00)
DX: K26.4 Chronic or unspecified duodenal ulcer with hemorrhage (principal); D62 Acute posthemorrhagic anemia; N17.9 Acute kidney failure, unspecified; I48.0 Paroxysmal atrial fibrillation; E83.51 Hypocalcemia; E78.5 Hyperlipidemia, unspecified; I12.9 Hypertensive chronic kidney disease with stage 1 through stage 4 chronic kidney disease, or unspecified chronic kidney disease; M54.12 Radiculopathy, cervical region; E87.6 Hypokalemia; D72.829 Elevated white blood cell count, unspecified; I25.2 Old myocardial infarction; N18.2 Chronic kidney disease, stage 2 (mild); Z66 Do not resuscitate; Z86.73 Personal history of transient ischemic attack (TIA), and cerebral infarction without residual deficits; Z79.82 Long term (current) use of aspirin
CPT/HCPCS: 36430; 71010; 80048; 80053; 83540; 83550; 84100; 84155; 85025; 85610; 85730; 86850; 86900; 86901; 86920; 93005; 96365; C9113; J0610; J0696; J2405; J3480; J7050; P9016

== ENCOUNTER 2016-09-05 15:31 | Inpatient (IN) | payer MEDICARE ==
[~2016-09-05] VITALS: Ht 182.9 cm; Wt 93.2 kg
[~2016-09-05 15:31] MED LIST changes: -CYCL1TAB29 PO; -FLEEENE3 PR; +POTA10TA2 PO; +PROT40TA PO; +TRAM50TA PO; +ZETI10TA5 PO
[2016-09-05] MEDS ORDERED: FERR325T PO (15:46)
[2016-09-05] MEDS ORDERED: METR-1 PO (15:46)
[2016-09-05] MEDS ORDERED: APIX5TAB PO (15:46)
[2016-09-05] MEDS ORDERED: OYST500T11 PO (15:46)
[2016-09-05] MEDS ORDERED: OCUVTAB PO (15:46)
[2016-09-05] MEDS ORDERED: LACT PO (15:46)
[2016-09-05] MEDS ORDERED: CALC.25 PO (15:46)
[2016-09-05] MEDS ORDERED: LEVE500 PO (15:46)
[2016-09-05] MEDS ORDERED: SUCR1S PO (15:46)
[2016-09-05] MEDS ORDERED: ALBUMIN HUMAN 5% 25 GM/500 ML BOTTLE ONE (17:20)
[2016-09-05 17:25] VITALS: BP 97/57; PULSE 110; RESP 24; O2SAT 100
[2016-09-05] MEDS ORDERED: PROTHROMBIN COMPLEX CONC INJ 2,000 UNITS in SYRINGE/BAG 1 EA IV ONE (18:00)
[2016-09-05] MEDS ORDERED: SODIUM CHLOR 0.9% 250 ML INJ 250 ML IV ONE (18:00)
[2016-09-05 18:04] LABS: REVIEW FLAG FINAL
[2016-09-05 18:10] LABS: HEMATOCRIT 17.2 % (39.0-51.0)
[2016-09-05] MEDS ORDERED: FUROSEMIDE 20 MG/2 ML VIAL IV PUSH SCH (18:15)
[2016-09-05 18:25] VITALS: PULSE 110; RESP 24; TEMP 98.7; O2SAT 94
[2016-09-05] MEDS ORDERED: CHLORHEXIDINE GLUCONATE 2 % 1 PACK (2 CLOTHS) TOP PRN (18:30)
[2016-09-05] MEDS ORDERED: SODIUM CHLORIDE 0.9% FLUSH 5 ML FLUSH IV FLUSH PRN (18:30)
[2016-09-05] MEDS ORDERED: RESP: ALBUTEROL 2.5 MG/IPRATROPIUM 0.5 MG NEB (PRN) INH (18:30)
[2016-09-05] MEDS ORDERED: MISCELLANEOUS NURSING INFORMATION XX SCH (18:30)
[2016-09-05] MEDS ORDERED: PANTOPRAZOLE 80 MG/35 ML NS - BOLUS IV ONE ×2 (18:30)
[2016-09-05] MEDS ORDERED: ONDANSETRON HCL 4 MG/2 ML VIAL IV PRN (18:30)
[2016-09-05 18:49] LABS: INTERNATIONAL NORMALIZED RATIO 1.7 RATIO; PROTHROMBIN TIME - PATIENT 18.8 SEC (9.8-11.6)
[2016-09-05 19:25] LABS: BICARBONATE 25.3 MEQ/L (21.0-32.0); MAGNESIUM 1.9 MG/DL (1.5-2.5); POTASSIUM 3.3 MEQ/L (3.5-5.1); TOTAL BILIRUBIN ADULT 0.2 MG/DL (0.2-1.0)
[2016-09-05 19:27] LABS: CALCIUM-PROTEIN CORRECTED 7.2 MG/DL (8.5-10.1)
[2016-09-05] MEDS ORDERED: CALCIUM GLUCONATE INJ 2 GM in DEXTROSE 5% IN WATER 100ML INJ 100 ML IV ONE ×2 (19:30)
--- NOTE | 2016-09-05 19:34 | RADRPT ---
EXAM DATE/TIME: 09/05/2016 19:13 [facility] COMPARISON: CHEST SINGLE AP, September 04, 2016, 22:26. INDICATIONS : Shortness of breath, difficulty breathing MEDICAL HISTORY : Hypertension. Cardiovascular disease. SURGICAL HISTORY : None. ENCOUNTER: Initial ACUITY: 1 day PAIN SCORE: Non-responsive. LOCATION: Bilateral chest FINDINGS: Consolidation persists in both mid and lower lungs, left worse than right and neither side significan tly changed in the interim. No large effusion seen. No pneumothorax. Heart size stable, but limits of normal. Thoracic aorta is tortuous and atherosclerotic. CONCLUSION: No significant. Patchy consolidation of both mid and lower lungs again seen, left worse than right. Meir Woodson MD on September 05, 2016 at 19:31 Board Certified Radiologist. This report was verified electronically.
--- NOTE | 2016-09-05 19:56 | HHI.HP ---
HPI Service Critical Care Medicine Primary Care Physician Unknown Admission Diagnosis Diagnosis: Travel History International Travel<30 Days: No Contact w/Intl Traveler <30 Da: No Traveled to Known Affected Are: No History of Present Illness 89-year-old male with a medical history significant for A. fib on anticoagulation with Eliquis, hypertension, CAD status post previous VT who initially presented on 08/23/2016 for coffee-ground emesis and bright red bloody stools for which he underwent endoscopy/colonoscopy on 08/24 which showed hiatal hernia, duodenal ulcer which was cauterized, diverticulosis and internal hemorrhoids. Eliquis was stopped on admission. Subsequently patient was transferred to [facility] and had seizures on 08/30 for which neurology was consulted and workup revealed 2 small left parietal ischemic stroke with significant left carotid artery stenosis. He was initiated on Keppra and after clearing with GI, Eliquis was resumed. Today(09/05) patient had large bloody bowel movement with hypotension on rehabilitation for which she was given 2 L fluid bolus and transferred to the ICU. In transit he had a seizure. On arrival in the ICU he was drowsy though arousable on 100% nonrebreather with initial agonal respirations with subsequently improved with bag mask ventilation. He was hypotensive with a systolic blood pressure in the 60s. 2 L normal saline bolus as well as 500 cc 5 % albumin ordered stat while awaiting 2 units PRBCs ordered by the hospitalist on transfer. Patient's neurologic status gradually improved and decision was made not to proceed with endotracheal intubation as he was now awake and alert and following commands. I proceeded with placing a left femoral Cordis emergently for resuscitation in view of massive GI bleed. He was noted to have significant maroon stool following arrival to the ICU. 3 additional units PRBCs were ordered as his hemoglobin came back 5.6 as well as 2 units FFP, 1 unit pheresed platelets as well as 2000 units of Kcentra (Andexanet not available currently on checking with pharmacist). Protonix bolus and drip ordered. Patient was started on Levophed 20 mics per minute initially on arrival due to hypotension which was gradually titrated down on infusion of blood products/ fluids. PFSH Past Medical History Past Medical History VT HTN Hyperlipidemia A-fib CKD Duodenal ulcer S/P cauterization Coded Allergies: No Known Allergies (Verified , 08/23/16) Medications Tonsillectomy Endoscopy with cauterization duodenal ulcer 08/24/2016 Family History Dad had Pancreatic cancer Mother had lung cancer Social History No h/o tobacco use, alcohol or illicit drug use Review of Systems ROS Limitations: Clinical Condition Physical Exam Vital Signs Afebrile, heart rate 120s sinus tachycardia, blood pressure 60 systolic initially, O2 sat 100% on nonrebreather facemask, respiratory rate 20s. Physical Exam HEENT/Neuro: Pallor present, No icterus, tongue dry, KADY, drowsy, easily arousable, oriented x2, nonfocal grossly, moving all 4 extremities Neck: No JVD Chest/pulmonary: CTA bilaterally Cardiovascular: S1-S2 regular no gallop or murmur GI/abdomen: Soft, minimal distention noted, nontender, bowel sounds present, no organomegaly appreciated Extremities: Warm bilaterally, no edema Laboratory Laboratory Tests Test 09/05/16 09/05/16 17:39 18:00 Hemoglobin 5.6 Hematocrit 17.2 Prothrombin Time 18.8 Prothromb Time International 1.7 Ratio Activated Partial 40.0 Thromboplast Time Lactic Acid Level 2.4 Blood Type A POSITIVE Antibody Screen NEGATIVE Crossmatch Leukocyte-Reduced Leukocyte-Reduced Red Blood Red Blood Cells Cells Blood Bank Comment Result Diagram: 09/05/16 3571 Imaging Chest x-ray portable which was personally reviewed: Elevated right hemidiaphragm , lung fiore otherwise appear clear Assessment and Plan Assessment and Plan 89-year-old male with: Hemorrhagic shock Massive upper GI bleed probably secondary to duodenal ulcer Coagulopathy secondary to Eliquis Seizure Recent stroke Coronary artery disease Left carotid artery stenosis History of A. fib CKD Hyperlipidemia Plan: Neuro: Follow neuro checks. Seizure precautions, ordered Keppra 500 mg IV every 12 hourly. Eliquis stopped in view of massive GI bleed. Cardiovascular: Aggressive fluid resuscitation. Bolus with normal saline, albumin. Received 5 units PRBCs, 2 units FFP and continue maintenance IV fluids. Continue aggressive fluid resuscitation. Levophed for pressor support to maintain map greater than 65. Pulmonary: Continue supplemental O2. Initial plan for intubation on arrival abandoned as patient's neurologic status improved and he appeared to be protecting his airway and following commands subsequently. Bronchodilators as needed. GI/liver: Nothing by mouth, Protonix 80 mg bolus followed by 8 mg/h IV infusion. GI consult requested and I discussed the case with Dr. Myers who evaluated patient as well. He will consider EGD in a.m. following resuscitation. Renal/: IV hydration, strict intake output, monitor and replete electrolytes, follow BUN/creatinine. Damian catheterization to measure accurate intake output in critically ill patient with hemorrhagic shock requiring aggressive fluid resuscitation. ID: No antibiotics at this time Endocrine: Watch for hyperglycemia, SSI for glycemic control if needed Heme: Follow CBC and coags. Eliquis held. Given Kcentra 2000 units IV stat, 2 units FFP, 1 unit pheresed platelets, 4 units of PRBCs so far. Follow serial H& H, transfuse to keep hemoglobin above 8 g percent or for active GI bleeding with hypotension. 2 g calcium chloride IV piggyback ordered for anticipated hypocalcemia following large volume blood product transfusion. Prophylaxis: Protonix gtt, SCDs. No subcutaneous heparin or Lovenox in view of GI bleed. Access: left femoral vein cordis (09/05) Discussed with patient's daughter and son-in-law following their arrival in detail. Explained current clinical status and plan of care and they voiced understanding. They told me that patient has a signed [facility] DNR form which I was able to locate in our system. It had been signed on July 13, 2016. Per patient's daughter he does not want CPR in case of a cardiac arrest and would not want intubation as well. Condition extremely critical with hemorrhagic shock secondary to massive GI bleed requiring aggressive fluid resuscitation, blood products. Time spent on critical care excluding procedures: 120 minutes Code Status DNR/ DNI Discussed Condition With Family, Dr. Myers, Dr. Haque, ICU nursing staff/ ICU charge nurse Hong Ashley MD Sep 05, 2016 19:56
[2016-09-05] MEDS: PANTOPRAZOLE 80 MG/100 ML NS IV SCH ×2 (20:05)
[2016-09-05] MEDS: levETIRAcetam INJ 500 MG in SODIUM CHLORIDE 0.9% INJ 100 ML IV SCH (20:05)
[2016-09-05] MEDS: SODIUM CHLORIDE 0.9% FLUSH 5 ML FLUSH IV FLUSH SCH (20:08)
[2016-09-05] MEDS: SODIUM CHLOR 0.9% 1000 ML INJ 1,000 ML IV SCH ×2 (20:21→20:23)
[2016-09-05 20:31] VITALS: BP 103/49; PULSE 114; RESP 30; TEMP 97.5; O2SAT 100
[2016-09-05 21:01] LABS: AUTOMATED NEUTROPHIL # 11.9 TH/MM3 (1.8-7.7); BASOPHIL # 0.1 TH/MM3 (0-0.2); BASOPHIL % 0.4 % (0.0-2.0); EOSINOPHIL # 0.1 TH/MM3 (0-0.4); EOSINOPHIL % 0.4 % (0.0-4.0); LYMPH % 5.3 % (9.0-44.0); LYMPHOCYTE # 0.7 TH/MM3 (1.0-4.8); MEAN CELL VOLUME 89.8 FL (80.0-100.0); MEAN CORPUSCULAR HEMOGLOBIN 30.1 PG (27.0-34.0); MEAN CORPUSCULAR HGB CONC 33.5 % (32.0-36.0); MONO % 6.2 % (0.0-8.0); NEUT % 87.7 % (16.0-70.0); PLATELET COUNT 185 TH/MM3 (150-450); RED BLOOD COUNT 2.31 MIL/MM3 (4.50-5.90); RED CELL DISTRIBUTION WIDTH 15.6 % (11.6-17.2); WHITE BLOOD COUNT 13.6 TH/MM3 (4.0-11.0)
[2016-09-05 21:05] LABS: HEMO FLAGS DIFF FINAL
[2016-09-05 21:07] LABS: HEMATOCRIT 20.8 % (39.0-51.0)
--- NOTE | 2016-09-05 21:11 | PD.PROCEDR ---
Central Line Procedure REASON FOR PROCEDURE Central venous access PROCEDURE PERFORMED Central line placement: left femoral vein cordis(introducer) placement (as patient on Eliquis) CONSENT Informed consent for procedure was not obtained as this was an emergent procedure with patient in hemorrhagic shock. ANESTHESIA Local injection of 1% Lidocaine DESCRIPTION OF THE PROCEDURE The patient was placed in supine, mild Trendelenburg position. The area was exposed and cleansed with ChloraPrep, times two. Large sterile drape was used to cover the patient, with the site exposed, under sterile conditions including cap, face mask, sterile gown, and sterile gloves. On single attempt, the introducer needle was inserted with negative pressure in syringe and venous flash was obtained. The guide wire was then advanced without any restriction and the needle was removed. Using Seldinger technique the introducer catheter( cordis)/ dilator assembly was advanced over the guide wire up to the hub . The guide wire and dilator were removed. Good blood return obtained through side port which was then flushed and capped. Antibiotic disc was placed around central line at puncture site. The central line was secured to the skin with 1 interrupted 2.0 silk sutures. The area was bandaged with sterile see-through central line bandage. COMPLICATIONS: No apparent complications ESTIMATED BLOOD LOSS: Less than 1 cc. Hong Ashley MD Sep 05, 2016 21:11
[2016-09-05] MEDS ORDERED: PHYTONADIONE 10 MG/ML VIAL SQ ONE (21:45)
[2016-09-05 22:19] LABS: BLOOD, URINE TRACE (NEG); GLUCOSE,URINE NEG (NEG); KETONE, URINE NEG (NEG); MUCUS URINE FEW /lpf (OCC); NITRITE,URINE NEG (NEG); PH, URINE 5.5 (5.0-8.5); SQUAMOUS EPITHELIAL CELL URINE <1 /hpf (0-5); URINE COLOR YELLOW (YELLW/STRAW)
[2016-09-05 22:22] LABS: COMMENT (UR) CATH-CULT NOT IND; CULTURE IF INDICATED CATH CULTURE NOT IND
[2016-09-06] VITALS (11 sets, daily range): BP systolic 45–120; BP diastolic 19–58; PULSE 92–123; RESP 28–36; TEMP 98.1–99.1; O2SAT 72–100
[2016-09-06 00:57] LABS: HEMATOCRIT 27.1 % (39.0-51.0); MEAN CELL VOLUME 87.9 FL (80.0-100.0); MEAN CORPUSCULAR HEMOGLOBIN 30.2 PG (27.0-34.0); MEAN CORPUSCULAR HGB CONC 34.3 % (32.0-36.0); PLATELET COUNT 118 TH/MM3 (150-450); RED BLOOD COUNT 3.08 MIL/MM3 (4.50-5.90); RED CELL DISTRIBUTION WIDTH 14.3 % (11.6-17.2); REVIEW FLAG FINAL; WHITE BLOOD COUNT 11.4 TH/MM3 (4.0-11.0)
[2016-09-06] MEDS: SODIUM CHLOR 0.9% 1000 ML INJ 1,000 ML IV SCH ×3 (01:08→03:59)
[2016-09-06 01:22] LABS: APTT (PATIENT) 44.3 SEC (24.3-30.1); INTERNATIONAL NORMALIZED RATIO 1.4 RATIO; PROTHROMBIN TIME - PATIENT 15.8 SEC (9.8-11.6)
--- NOTE | 2016-09-06 03:37 | RADRPT ---
EXAM DATE/TIME: 09/06/2016 03:20 [facility] COMPARISON: CT BRAIN W/O CONTRAST, July 02, 2016, 12:40. MRI BRAIN W/O CONTRAST, August 30, 2016, 16:20. CT BRAIN W/O CONTRAST, August 27, 2016, 18:17. INDICATIONS : Hypotensive and seizure. RADIATION DOSE: 42.56 CTDIvol (mGy) MEDICAL HISTORY : Cardiovascular disease. Hypertension. Renal failure, chronic.Atrial fibrillation. SURGICAL HISTORY : None. ENCOUNTER: Initial ACUITY: 1 day PAIN SCALE: 3/10 LOCATION: Bilateral cranial TECHNIQUE: Multiple contiguous axial images were obtained of the head. Using automated exposure control and adj ustment of the mA and/or kV according to patient size, radiation dose was kept as low as reasonably a chievable to obtain optimal diagnostic quality images. FINDINGS: CEREBRUM: The ventricles and cortical sulci are widened. There is some expansion of the extra-axial space over the right hemisphere.. There is a focal calcification at the right caudate head. There is calcificat ion in the left basal ganglia and linear calcifications in the cerebral white matter. There is calcif ication at the cerebral hemispheres. All these areas are stable. There is decreased density in the ce rebral white matter likely related to small vessel ischemic change. No evidence of midline shift, mas s lesion, hemorrhage or acute infarction. POSTERIOR FOSSA: Again noted are the cerebellar calcifications. The cerebellum and brainstem are intact. The 4th vent ricle is midline. The cerebellopontine angle is unremarkable. EXTRACRANIAL: The visualized portion of the orbits is intact. SKULL: The calvaria is intact. No evidence of skull fracture. CONCLUSION: 1. No acute intracranial abnormality is seen. 2. Chronic calcifications as described above. Meir Mendoza MD on September 06, 2016 at 3:32 Board Certified Radiologist. This report was verified electronically.
--- NOTE | 2016-09-06 03:45 | RADRPT ---
EXAM DATE/TIME: 09/06/2016 03:22 [facility] COMPARISON: No previous studies available for comparison. INDICATIONS : Hemorrhagic shock, abdominal distention, blood in stool ORAL CONTRAST: No oral contrast ingested. RADIATION DOSE: 13.82 CTDIvol (mGy) MEDICAL HISTORY : Cardiovascular disease. Hypertension. Renal failure, chronic. SURGICAL HISTORY : None. ENCOUNTER: Initial ACUITY: 1 day PAIN SCALE: 6/10 LOCATION: Diffuse abdomen TECHNIQUE: Volumetric scanning of the abdomen and pelvis was performed. Using automated exposure control and ad justment of the mA and/or kV according to patient size, radiation dose was kept as low as reasonably achievable to obtain optimal diagnostic quality images. FINDINGS: LOWER LUNGS: Lower pleural calcified plaques are seen. There is interstitial disease at the bases. There some foca l areas of consolidation or masses scattered throughout the lung bases. LIVER: Homogeneous density without lesion. There is no dilation of the biliary tree. No calcified gallston es. SPLEEN: Normal size without lesion. PANCREAS: Within normal limits. KIDNEYS: Normal in size and shape. There is no mass, stone, or hydronephrosis. ADRENAL GLANDS: Within normal limits. VASCULAR: There is no aortic aneurysm. Arterial calcifications are seen throughout. BOWEL/MESENTERY: The stomach, small bowel, and colon demonstrate no acute abnormality. There is no free intraperitone al air or fluid. The hepatic flexure is seen along the anterior superior aspect of the liver. ABDOMINAL WALL: Within normal limits. RETROPERITONEUM: There is no lymphadenopathy. BLADDER: There is a Damian catheter in place. REPRODUCTIVE: Within normal limits. INGUINAL: There is no lymphadenopathy or hernia. MUSCULOSKELETAL: There is acute fracturing of the superior aspect of the L2 vertebral body. The L2 vertebral body has lost a proximally one quarter of its original height. There is prominent concavity to the superior as pect of the L1 vertebral body. Much of this is chronic. There may be some or acute fracturing at the anterior aspect of the L1 vertebral body. There is degenerative change in lumbar spine. CONCLUSION: 1. Acute fracturing of the superior aspect of L2. There appears to be more chronic fracturing of the superior aspect of L1 with a potential acute bone anteriorly. These vertebral bodies have lost approx imately one quarter of the original height. 2. 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 In addition, there is inters titial disease and small focal areas of alveolar consolidation or masses seen throughout the bases. Meir Mendoza MD on September 06, 2016 at 3:36 Board Certified Radiologist. This report was verified electronically.
[2016-09-06] MEDS: PANTOPRAZOLE 80 MG/100 ML NS IV SCH ×2 (03:59)
[2016-09-06] MEDS ORDERED: CHLORHEXIDINE GLUCONATE 2 % 1 PACK (2 CLOTHS) TOP SCH (04:00)
[2016-09-06 05:20] LABS: AUTOMATED NEUTROPHIL # 8.6 TH/MM3 (1.8-7.7); BASOPHIL # 0.1 TH/MM3 (0-0.2); BASOPHIL % 0.6 % (0.0-2.0); EOSINOPHIL # 0.1 TH/MM3 (0-0.4); EOSINOPHIL % 0.6 % (0.0-4.0); HEMATOCRIT 22.4 % (39.0-51.0); HEMO FLAGS DIFF FINAL; LYMPH % 10.8 % (9.0-44.0); LYMPHOCYTE # 1.2 TH/MM3 (1.0-4.8); MEAN CELL VOLUME 87.9 FL (80.0-100.0); MEAN CORPUSCULAR HEMOGLOBIN 31.2 PG (27.0-34.0); MEAN CORPUSCULAR HGB CONC 35.5 % (32.0-36.0); PLATELET COUNT 124 TH/MM3 (150-450); RED BLOOD COUNT 2.55 MIL/MM3 (4.50-5.90); RED CELL DISTRIBUTION WIDTH 14.5 % (11.6-17.2); WHITE BLOOD COUNT 10.9 TH/MM3 (4.0-11.0)
[2016-09-06 05:29] LABS: INTERNATIONAL NORMALIZED RATIO 1.5 RATIO; PROTHROMBIN TIME - PATIENT 17.2 SEC (9.8-11.6)
[2016-09-06 05:54] LABS: BICARBONATE 22.8 MEQ/L (21.0-32.0); CALCIUM-PROTEIN CORRECTED 7.5 MG/DL (8.5-10.1); POTASSIUM 3.7 MEQ/L (3.5-5.1)
[2016-09-06] MEDS ORDERED: SODIUM CHLOR 0.9% 250 ML INJ 250 ML IV ONE (08:15)
[2016-09-06] MEDS: CALCIUM CHLORIDE INJ 1 GM in DEXTROSE 5% IN WATER 100ML INJ 100 ML IV ONE ×4 (08:46→10:00)
[2016-09-06] MEDS: SODIUM CHLORIDE 0.9% FLUSH 5 ML FLUSH IV FLUSH SCH (08:50)
[2016-09-06] MEDS: levETIRAcetam INJ 500 MG in SODIUM CHLORIDE 0.9% INJ 100 ML IV SCH (08:51)
--- NOTE | 2016-09-06 09:13 | HHI.PR ---
Subjective Remarks massive gi bleed hx afib on eliquis known pud recent sz and some left sharps on eeg and small left cva i dw his daughter she notes rue weak since some cord problem but i see no documentation of this and no documentation of rue weakness Objective Vital Signs Date Time Temp Pulse Resp B/P Pulse Ox O2 Delivery O2 Flow Rate FiO2 09/06/16 08:30 97 Nasal Cannula 4.00 09/06/16 06:00 100 Nasal Cannula 4.00 09/06/16 04:00 98.1 114 28 102/49 96 09/06/16 00:00 98.5 109 28 120/56 100 09/05/16 20:31 97.5 114 30 103/49 100 09/05/16 20:00 Non-Rebreather 100 09/05/16 18:25 98.7 110 24 94 09/05/16 17:25 110 24 97/57 100 09/05/16 17:00 94 Non-Rebreather 100 I/O 09/05/16 09/05/16 09/05/16 09/06/16 09/06/16 09/06/16 07:00 15:00 23:00 07:00 15:00 23:00 Intake Total 8698 ml 960 ml Output Total 1800 ml 200 ml Balance 6898 ml 760 ml Intake IV Total 6348 ml 960 ml Albumin 500 ml Packed Cells 1000 ml FFP 600 ml Platelets 250 ml Output Urine Total 200 ml Stool Total 1800 ml # Bowel Movements 3 Result Diagram: 09/06/16 0505 09/06/16 0505 Objective Remarks mumbles pupil = 0/5 rue moves left nl wears hard collar toes equiv not follow command appears? posticatal or aphasic Assessment and Plan Assessment and Plan unclear to me about rue weak either todds or new cva or acc to daughter was weak prior? needs recheck eeg and brain imaging needs inc addy gomez fu i edison stewart could do mri b4 scop and if large left mca then could dc intervention? i dw daugheter but sh e not poa seems agreeable await poa add vimpat mathematics technician to call me Sina Menjivar MD Sep 06, 2016 09:13
--- NOTE | 2016-09-06 09:31 | PD.CONS ---
HPI History of Present Illness This is a 89 year old male patient with a history of atrial fibrillation, coronary artery disease, who was recently hospitalized for coffee-ground emesis and bright red bloody stools. His liquids was stopped and he was evaluated with an EGD/colonoscopy (08/24/16) and this revealed a single nonbleeding ulcer, measuring 10 x 15 mm in size, was found in the duodenal bulb; bipolar cautery with a 10 Somali probe was applied to the site for 10 seconds; with complete hemostasis achieved, retroflexed views revealed no abnormalities, moderate diverticulosis was noted in the sigmoid colon, blood throughout the colon, no active bleeding seen, retroflex views revealed medium internal hemorrhoids, external hemorrhoids. He was transferred to [facility] for rehabilitation and had seizures on 08/30 for which neurology was consulted and the workup revealed 2 small left parietal ischemic stroke with significant left carotid artery stenosis he was started on Keppra and his Eliquis was resumed. Yesterday the patient developed significant bleeding passing a large amount of maroon-colored bloody stools. The nurse reports that it is about 700-800 cc but they collected and probably another 300 cc in the bed. He required 9 units of packed red blood cells, 2 units of FFP. He was given K Centra. Even with the 9 units of packed red blood cells his H&H this morning is 8.0/22.4. The nurse reports that he has not had any obvious hematochezia this morning but he is requiring the use of vasopressors. CT scan abdomen and pelvis without IV contrast (09/06/16) revealed acute fracture superior aspect L2. There appears to be more chronic duct fracturing of the superior aspect of L1 with a potential acute bone anteriorly. These vertebral bodies have lost approximately one quarter of the original height. Bilateral calcified pleural plaques concerning for asbestosis exposure. In addition there is interstitial disease and small focal areas of alveolar consolidation or masses seen throughout the bases. The patient is lethargic and unable to provide any history or consent for any procedures. His healthcare surrogate are his daughters, Lizzette and Beth. At this time he is a DNR/DNI. Attempted to call daughter Beth at there is no answer and therefore I left my cell number for her to return call. His daughter Lizzette arrived to the room. Discussed with her patient's ongoing GI bleeding and that for us to perform endoscopic procedure to control the bleeding that the patient would need to be intubated for airway protection. Also discussed with daughter that if he becomes intubated he is at risk for prolonged intubation and the fact that we cannot guarantee that he would be able to come off the ventilator. She would like to discuss this over with her sister before making a decision if they would want to intubate the patient to have an endoscopy. (Diamond Dueñas) PFSH Past Medical History Coronary artery disease/ND Large bleeding duodenal ulcer 2 small left parietal ischemic strokes Hyperlipidemia Hypertension Atrial fibrillation Chronic kidney disease Past Surgical History EGD/colonoscopy Tonsillectomy (Diamond Dueñas) Coded Allergies: No Known Allergies (Verified , 08/23/16) Medications Allergies Coded Allergies Type Severity Reaction Last Updated Verified No Known Allergies 08/23/16 Yes Active Scripts Medications Dose Route/Sig Days Date Category Sucralfate Liq (Sucralfate) 1 Gm/10 Ml Samantha 1 Gm PO ACHS 30 09/05/16 Rx Oyster Shell Calcium (Oyster Shell) 500 Mg Tab 1,000 Mg PO Q12HR 30 09/05/16 Rx Ocuvite (Multiple Vitamins W/ Minerals) 1 Tab 1 Tab PO DAILY 09/05/16 Rx Flagyl (Metronidazole) 500 Mg Tab 500 Mg PO Q6H 7 09/05/16 Rx Keppra (Levetiracetam) 500 Mg Tab 500 Mg PO Q12HR 09/05/16 Rx Acidophilus/l-Sporogenes (Lactobacillus Acidophilus) 1 Tab Tab 1 Tab PO TID 09/05/16 Rx Ferrous Sulfate 325 Mg Tab 325 Mg PO BID@09/05/16 Rx Rocaltrol (Calcitriol) 0.25 Mcg Cap 0.25 Mcg PO BID 09/05/16 Rx Eliquis (Apixaban) 5 Mg Tab 5 Mg PO BID 09/05/16 Rx Protonix (Pantoprazole Sodium) 40 Mg Tab 40 Mg PO DAILY 08/25/16 Rx Zetia (Ezetimibe) 10 Mg Tab 10 Mg PO DAILY 08/23/16 Reported Vitamin D3 (Cholecalciferol) 1,000 Unit Tab 2,000 Units PO DAILY 07/12/16 Rx Lipitor (Atorvastatin Calcium) 40 Mg Tab 40 Mg PO HS 12/29/16 Rx Family History Father from pancreatic cancer Mother had lung cancer Social History No history of tobacco use, alcohol or illicit drug use (Diamond Dueñas) Review of Systems ROS Unable to obtain (Diamond Dueñas) GI Exam Vitals I&O Vital Signs Date Time Temp Pulse Resp B/P Pulse Ox O2 Delivery O2 Flow Rate FiO2 09/06/16 08:30 97 Nasal Cannula 4.00 09/06/16 06:00 100 Nasal Cannula 4.00 09/06/16 04:00 98.1 114 28 102/49 96 09/06/16 00:00 98.5 109 28 120/56 100 09/05/16 20:31 97.5 114 30 103/49 100 09/05/16 20:00 Non-Rebreather 100 09/05/16 18:25 98.7 110 24 94 09/05/16 17:25 110 24 97/57 100 09/05/16 17:00 94 Non-Rebreather 100 I/O 09/05/16 09/05/16 09/05/16 09/06/16 09/06/16 09/06/16 07:00 15:00 23:00 07:00 15:00 23:00 Intake Total 8698 ml 960 ml Output Total 1800 ml 200 ml Balance 6898 ml 760 ml Intake IV Total 6348 ml 960 ml Albumin 500 ml Packed Cells 1000 ml FFP 600 ml Platelets 250 ml Output Urine Total 200 ml Stool Total 1800 ml # Bowel Movements 3 Imaging Last Impressions Head CT 09/05/16 0000 Signed Impressions: Service Date/Time: August 03:20 - CONCLUSION: 1. No acute intracranial abnormality is seen. 2. Chronic calcifications as described above. Meir Mendoza MD Chest X-Ray 09/05/16 0000 Signed Impressions: Service Date/Time: Monday, September 05, 2016 19:13 - CONCLUSION: No significant. Patchy consolidation of both mid and lower lungs again seen, left worse than right. Meir Woodson MD Abdomen/Pelvis CT 09/05/16 0000 Signed Impressions: Service Date/Time: August 03:22 - CONCLUSION: 1. Acute fracturing of the superior aspect of L2. There appears to be more chronic fracturing of the superior aspect of L1 with a potential acute bone anteriorly. These vertebral bodies have lost approximately one quarter of the original height. 2. 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 In addition, there is interstitial disease and small focal areas of alveolar consolidation or masses seen throughout the bases. Meir Mendoza MD Laboratory Test 09/05/16 09/05/16 09/05/16 09/05/16 17:39 18:00 18:35 20:45 Hemoglobin 5.6 GM/DL 6.9 GM/DL Hematocrit 17.2 % 20.8 % Prothrombin Time 18.8 SEC Prothromb Time International 1.7 RATIO Ratio Activated Partial 40.0 SEC Thromboplast Time Sodium Level 142 MEQ/L Potassium Level 3.3 MEQ/L Chloride Level 108 MEQ/L Carbon Dioxide Level 25.3 MEQ/L Anion Gap 9 MEQ/L Blood Urea Nitrogen 30 MG/DL Creatinine 1.05 MG/DL Estimat Glomerular Filtration 67 ML/MIN Rate Random Glucose 143 MG/DL Lactic Acid Level 2.4 mmol/L Calcium Level 6.0 MG/DL Protein Corrected Calcium 7.2 MG/DL Phosphorus Level 3.2 MG/DL Magnesium Level 1.9 MG/DL Total Bilirubin 0.2 MG/DL Aspartate Amino Transf 27 U/L (AST/SGOT) Alanine Aminotransferase 21 U/L (ALT/SGPT) Alkaline Phosphatase 34 U/L Total Creatine Kinase 31 U/L Troponin I 0.02 NG/ML Total Protein 4.5 GM/DL Albumin 1.5 GM/DL Blood Type A POSITIVE Antibody Screen NEGATIVE Crossmatch Leukocyte-Reduced Leukocyte-Reduced Red Blood Red Blood Cells Cells Blood Bank Comment Urine Color YELLOW Urine Turbidity CLEAR Urine pH 5.5 Urine Specific [place] 1.025 Urine Protein 30 mg/dL Urine Glucose (UA) NEG mg/dL Urine Ketones NEG mg/dL Urine Occult Blood TRACE Urine Nitrite NEG Urine Bilirubin NEG Urine Urobilinogen LESS THAN 2.0 MG/DL Urine Leukocyte Esterase TRACE Urine RBC LESS THAN 1 /hpf Urine WBC 1 /hpf Urine Squamous Epithelial <1 /hpf Cells Urine Mucus FEW /lpf Microscopic Urinalysis Comment CATH-CULT NOT IND White Blood Count 13.6 TH/MM3 Red Blood Count 2.31 MIL/MM3 Mean Corpuscular Volume 89.8 FL Mean Corpuscular Hemoglobin 30.1 PG Mean Corpuscular Hemoglobin 33.5 % Concent Red Cell Distribution Width 15.6 % Platelet Count 185 TH/MM3 Mean Platelet Volume 7.8 FL Neutrophils (%) (Auto) 87.7 % Lymphocytes (%) (Auto) 5.3 % Monocytes (%) (Auto) 6.2 % Eosinophils (%) (Auto) 0.4 % Basophils (%) (Auto) 0.4 % Neutrophils # (Auto) 11.9 TH/MM3 Lymphocytes # (Auto) 0.7 TH/MM3 Monocytes # (Auto) 0.8 TH/MM3 Eosinophils # (Auto) 0.1 TH/MM3 Basophils # (Auto) 0.1 TH/MM3 CBC Comment DIFF FINAL Differential Comment Test 09/06/16 09/06/16 09/06/16 00:05 05:05 08:22 White Blood Count 11.4 TH/MM3 10.9 TH/MM3 Red Blood Count 3.08 MIL/MM3 2.55 MIL/MM3 Hemoglobin 9.3 GM/DL 8.0 GM/DL Hematocrit 27.1 % 22.4 % Mean Corpuscular Volume 87.9 FL 87.9 FL Mean Corpuscular Hemoglobin 30.2 PG 31.2 PG Mean Corpuscular Hemoglobin 34.3 % 35.5 % Concent Red Cell Distribution Width 14.3 % 14.5 % Platelet Count 118 TH/MM3 124 TH/MM3 Mean Platelet Volume 8.4 FL 8.5 FL Prothrombin Time 15.8 SEC 17.2 SEC Prothromb Time International 1.4 RATIO 1.5 RATIO Ratio Activated Partial 44.3 SEC Thromboplast Time Fibrinogen 182 mg/dL Total Creatine Kinase 73 U/L 98 U/L Troponin I 0.05 NG/ML 0.17 NG/ML Neutrophils (%) (Auto) 79.0 % Lymphocytes (%) (Auto) 10.8 % Monocytes (%) (Auto) 9.0 % Eosinophils (%) (Auto) 0.6 % Basophils (%) (Auto) 0.6 % Neutrophils # (Auto) 8.6 TH/MM3 Lymphocytes # (Auto) 1.2 TH/MM3 Monocytes # (Auto) 1.0 TH/MM3 Eosinophils # (Auto) 0.1 TH/MM3 Basophils # (Auto) 0.1 TH/MM3 CBC Comment DIFF FINAL Differential Comment Sodium Level 149 MEQ/L Potassium Level 3.7 MEQ/L Chloride Level 117 MEQ/L Carbon Dioxide Level 22.8 MEQ/L Anion Gap 9 MEQ/L Blood Urea Nitrogen 35 MG/DL Creatinine 1.12 MG/DL Estimat Glomerular Filtration 62 ML/MIN Rate Random Glucose 126 MG/DL Calcium Level 5.7 MG/DL Protein Corrected Calcium 7.5 MG/DL Total Bilirubin 1.0 MG/DL Aspartate Amino Transf 21 U/L (AST/SGOT) Alanine Aminotransferase 14 U/L (ALT/SGPT) Alkaline Phosphatase 23 U/L Total Protein 3.3 GM/DL Albumin 1.5 GM/DL Blood Type A POSITIVE Crossmatch Leukocyte-Reduced Red Blood Cells Blood Bank Comment Physical Examination HEENT: Normocephalic; atraumatic; no jaundice. Cervical brace CHEST: CTA, Course breath sounds CARDIAC: Irregular ABDOMEN: Soft, nondistended, nontender; no hepatosplenomegaly; bowel sounds are present in all four quadrants. EXTREMITIES: No clubbing, cyanosis, or edema. SKIN: Normal; no rash; no jaundice. [employer]: LEthargic, confused, right upper extremity, ble weakness (Diamond Dueñas) Assessment and Plan Plan ASSESSMENT: - Upper GI bleeding. Pt has a known large duodenal ulcer that required endoscopic control of bleeding. Pt also with atrial fibrillation, and his Eliquis was placed on hold, but he developed a sz on 03/30 and workup revealed with neuro workup revealed 2 small left parietal ischemic stroke with significant left carotid artery stenosis he was started on Keppra and his Eliquis was resumed. He then started having significant GI bleeding with about 700-800cc dark maroon bloody stool and another ~300cc in bed yesterday. He was tx to the unit and required 9 units of PRBC, 2 units of FFP, KCentra. His HH is now 8.0/22.4. His healthcare surrogate are his daughters, Lizzette and Beth. At this time he is a DNR/DNI. Attempted to call daughter Beth at there is no answer and therefore I left my cell number for her to return call. His daughter Lizzette arrived to the room. Discussed with her patient's ongoing GI bleeding and that for us to perform endoscopic procedure to control the bleeding that the patient would need to be intubated for airway protection. Also discussed with daughter that if he becomes intubated he is at risk for prolonged intubation and the fact that we cannot guarantee that he would be able to come off the ventilator. She would like to discuss this over with her sister before making a decision if they would want to intubate the patient to have an endoscopy. - Large duodenal ulcer. EGD/colonoscopy (08/24/16) and this revealed a single nonbleeding ulcer, measuring 10 x 15 mm in size, was found in the duodenal bulb; bipolar cautery with a 10 Somali probe was applied to the site for 10 seconds; with complete hemostasis achieved, retroflexed views revealed no abnormalities, moderate diverticulosis was noted in the sigmoid colon, blood throughout the colon, no active bleeding seen, retroflex views revealed medium internal hemorrhoids, external hemorrhoids. - Anemia, acute blood loss. S/P 9 units yesterday, 8 units ordered today. - Atrial fibrillation, Eliquis was restarted, but now back on hold after patient developed massive bleed. S/P KCentra, 2 units FFP. - Ischemic CVA, Left carotid artery stenosis per neurology. - CKD, Anuria, electrolyte abnormalities. per CCM - Hypotension, with hx of htn, now on pressors - Hyperlipidemia per primary PLAN: - Possible EGD with endoscopic control of bleeding. Pt is currently not stable and would require intubation before any endoscopic procedure. Currently, he is a DNR/DNI. Attempted to call daughter Beth at there is no answer and therefore I left my cell number for her to return call. His daughter Lizzette arrived to the room. Discussed with her patient's ongoing GI bleeding and that for us to perform endoscopic procedure to control the bleeding that the patient would need to be intubated for airway protection. Also discussed with daughter that if he becomes intubated he is at risk for prolonged intubation and the fact that we cannot guarantee that he would be able to come off the ventilator. She would like to discuss this over with her sister before making a decision if they would want to intubate the patient to have an endoscopy. - NPO - Protonix Gtt - Agree with transfusion - Monitor HH - Transfuse as nccessary - Daughter states she will call as soon as they make decision re: intubation/ EGD. - Supportive care - Further recommendations to follow based on results of above - Pt seen and examined by Dr. Myers and myself and this note is written on his behalf (Diamond Dueñas) Physician Comments patient was seen and examined, patient is bleeding, family decided to have comfort care only and no more procedures. (Dejah Myers MD) Diamond Dueñas Sep 06, 2016 09:31 Dejah Myers MD Sep 06, 2016 18:50
[2016-09-06] MEDS ORDERED: LACOSAMIDE INJ 100 MG in SODIUM CHLORIDE 0.9% INJ 100 ML IV SCH (11:00)
[2016-09-06] MEDS ORDERED: MIDAZOLAM HCL 5 MG/ML VIAL (1 ML) ONE ×2 (11:01→11:03)
[2016-09-06] MEDS ORDERED: ROCURONIUM INJ 50 MG/5 ML VIAL ONE (11:02)
--- NOTE | 2016-09-06 11:08 | MG ---
cc: OBINNA ALMANZAR M.D. Lab No: [id number] Date: 09/06/2016 Age: 89 Sex: M Race: ___ DATE OF [address] Haque TECHNIQUE Lethargic with photic stimulation. Responds when spoken to. Moves extremities per tech. INDICATIONS This is an 89-year-old man from [place] with lethargy, bloody bowel movement, hypotension, and seizure. MEDICATIONS 1. Keppra 2. Vitamin K 3. Pantoprazole DESCRIPTION OF RECORD There is quite a bit of movement artifact throughout the recording. EKG looks sinus tachycardic, constant leg foot twitching. There may be some sharp waves seen, but due to all of the movements, it is difficult to tell if they are true or not. When he is not moving about as much, the background seems fairly symmetrical, a little bit of slowing predominately of theta frequency. Hyperventilation was not done. Photic stimulation with some minimal driving response, but a lot of artifact. IMPRESSION Questionable sharps but quite a bit of artifact difficult to tell. The patient was started on Locosamide. Continue current recommendations. Watch for seizures. Use Ativan p.r.n. continue care per other consultants for his GI bleed. Further recommendations will be made accordingly for the seizure activity. Clinical correlation. MD CUAUHTEMOC Vazquez/SEBASTIÁN /10:51 AM /10:56 AM
[2016-09-06] MEDS ORDERED: levETIRAcetam 1000 MG INJ 100 ML IV ONE (12:15)
[2016-09-06 12:23] LABS: MEAN CELL VOLUME 80.3 FL (80.0-100.0); MEAN CORPUSCULAR HEMOGLOBIN 26.8 PG (27.0-34.0); MEAN CORPUSCULAR HGB CONC 33.4 % (32.0-36.0); PLATELET COUNT 122 TH/MM3 (150-450); RED BLOOD COUNT 2.28 MIL/MM3 (4.50-5.90); RED CELL DISTRIBUTION WIDTH 19.2 % (11.6-17.2); WHITE BLOOD COUNT 13.2 TH/MM3 (4.0-11.0)
[2016-09-06 12:31] LABS: REVIEW FLAG FINAL
[2016-09-06 12:35] LABS: HEMATOCRIT 18.3 % (39.0-51.0)
[2016-09-06 12:41] LABS: APTT (PATIENT) 35.3 SEC (24.3-30.1); INTERNATIONAL NORMALIZED RATIO 1.4 RATIO; PROTHROMBIN TIME - PATIENT 16.1 SEC (9.8-11.6)
[2016-09-06] MEDS ORDERED: MORPHINE SULFATE 4 MG/ML INJ IV PRN (12:45)
[2016-09-06] MEDS ORDERED: LORazepam 2 MG/ML VIAL IV ONE ×2 (12:45→15:45)
[2016-09-06] MEDS ORDERED: HYOSCYAMINE 0.5 MG/ML AMP IV ONE (12:45)
[2016-09-06] MEDS ORDERED: MORPHINE SULFATE 8 MG/ML INJ IV PUSH ONE (12:45)
[2016-09-06] MEDS ORDERED: LORazepam 2 MG/ML VIAL IV PRN (12:45)
[2016-09-06] MEDS ORDERED: ACETAMINOPHEN 650 MG SUPP PR PRN (15:45)
[2016-09-06] MEDS ORDERED: MORPHINE SULFATE 4 MG/ML INJ IV ONE (15:45)
[2016-09-06] MEDS ORDERED: HYOSCYAMINE 0.5 MG/ML AMP IV PRN (15:45)
--- NOTE | 2016-09-06 18:38 | PD.PROCEDR ---
Procedure Note Procedure Procedure: Arterial Line Placement Right radial arterial line placement Diagnosis: Massive upper GI bleeding Indications: And need for beat to beat hemodynamic monitoring Consent: Consent is deemed emergent or medically necessary Description of the Procedure: The right wrist was prepped and draped sterilely. 1% lidocaine was used for local anesthesia. The pulse was located and a needle was advanced into the artery. A 20 gauge, 12 cm catheter was advanced into the artery using a modified Seldinger technique. The catheter was sutured to the skin and a sterile dressing was applied. The catheter was connected to a pressure transducer and an arterial waveform was noted. There were no immediate complications noted. There was minimal EBL. I personally performed the procedure. Yosi Alanis MD Sep 06, 2016 18:38
--- NOTE | 2016-09-06 18:44 | PD.PROCEDR ---
Procedure Note Procedure Endotracheal Intubation Diagnosis: Acute upper GI bleed Indications: Massive upper GI bleed with inability to protect his airway and hypoxic respiratory failure Consent: Verbal consent was obtained from the family Anesthesia: None Description of the Procedure: The patient was positioned in the sniffing position. Pre-oxygenation was performed using a nonrebreather mask. Due to the patient's obtundation and my concern with impending aspiration, the patient's airway reflexes were attempted to remain intact and no anesthesia was given. The patient was a GCS of less than 8 and did not require anesthesia for endotracheal intubation. 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 Laryngoscopy and minimal for any cervical motion was encountered. A GlideScope #4 was used for laryngoscopy and a Grade I view was obtained. A 8.0 cuffed endotracheal tube was inserted atraumatically through the vocal cords. Confirmation of correct endotracheal tube placement was made by equal and bilateral breath sounds and colorimetric CO2 detection. The endotracheal tube was secured at 23 cm at the teeth. There were no immediate complications noted. The patient remained hemodynamically stable throughout the procedure. A chest x-ray has been ordered. I personally performed the procedure. Yosi Alanis MD Sep 06, 2016 18:43
--- NOTE | 2016-09-06 19:04 | DEATH SUM ---
Pronouncement Date Pronounced : Sep 06, 2016 Time Of : 1509 Pronouncement Called to pronounce of patient. Identified patient as Bunny Sigala with wrist band MR# [id number]. Patient with no cardiac activity in 2 separate leads and no palpable/auscible cardiac activity. Patient with no spontaneous respirations, no corneal reflex or response to painful stimuli. Pupils fixed and dilated. Preliminary Cause of : Cardiac arrest Yosi Alanis MD Sep 06, 2016 19:04
--- NOTE | 2016-09-06 19:05 | HHI.DS ---
Summary Note Date of : Sep 06, 2016 Time Of : 1509 Admission Date Sep 05, 2016 at 15:31 Admitting Diagnosis Diagnosis at Time of : Brief History 89-year-old male with a medical history significant for A. fib on anticoagulation with Eliquis, hypertension, CAD status post previous [place] who initially presented on 08/23/2016 for coffee-ground emesis and bright red bloody stools for which he underwent endoscopy/colonoscopy on 08/24 which showed hiatal hernia, duodenal ulcer which was cauterized, diverticulosis and internal hemorrhoids. Eliquis was stopped on admission. Subsequently patient was transferred to [facility] and had seizures on 08/30 for which neurology was consulted and workup revealed 2 small left parietal ischemic stroke with significant left carotid artery stenosis. He was initiated on Keppra and after clearing with GI, Eliquis was resumed. Today(09/05) patient had large bloody bowel movement with hypotension on rehabilitation for which she was given 2 L fluid bolus and transferred to the ICU. In transit he had a seizure. On arrival in the ICU he was drowsy though arousable on 100% nonrebreather with initial agonal respirations with subsequently improved with bag mask ventilation. He was hypotensive with a systolic blood pressure in the 60s. 2 L normal saline bolus as well as 500 cc 5 % albumin ordered stat while awaiting 2 units PRBCs ordered by the hospitalist on transfer. Patient's neurologic status gradually improved and decision was made not to proceed with endotracheal intubation as he was now awake and alert and following commands. I proceeded with placing a left femoral Cordis emergently for resuscitation in view of massive GI bleed. He was noted to have significant maroon stool following arrival to the ICU. 3 additional units PRBCs were ordered as his hemoglobin came back 5.6 as well as 2 units FFP, 1 unit pheresed platelets as well as 2000 units of Kcentra (Andexanet not available currently on checking with pharmacist). Protonix bolus and drip ordered. Patient was started on Levophed 20 mics per minute initially on arrival due to hypotension which was gradually titrated down on infusion of blood products/ fluids. PFSH Past Medical History Past Medical History [place] HTN Hyperlipidemia A-fib CKD Duodenal ulcer S/P cauterization Coded Allergies: No Known Allergies (Verified , 08/23/16) Medications Tonsillectomy Endoscopy with cauterization duodenal ulcer 08/24/2016 Family History Dad had Pancreatic cancer Mother had lung cancer Social History No h/o tobacco use, alcohol or illicit drug use CBC/BMP: 09/06/16 1200 09/06/16 0505 Significant Findings Laboratory Tests Test 09/05/16 09/05/16 09/05/16 09/06/16 17:39 18:35 20:45 00:05 Hemoglobin 5.6 GM/DL 6.9 GM/DL 9.3 GM/DL (13.0-17.0) (13.0-17.0) (13.0-17.0) Hematocrit 17.2 % 20.8 % 27.1 % (39.0-51.0) (39.0-51.0) (39.0-51.0) Prothrombin Time 18.8 SEC 15.8 SEC (9.8-11.6) (9.8-11.6) Activated Partial 40.0 SEC 44.3 SEC Thromboplast Time (24.3-30.1) (24.3-30.1) Potassium Level 3.3 MEQ/L (3.5-5.1) Chloride Level 108 MEQ/L (98-107) Blood Urea Nitrogen 30 MG/DL (7-18) Estimat Glomerular Filtration 67 ML/MIN (>89) Rate Random Glucose 143 MG/DL (74-106) Lactic Acid Level 2.4 mmol/L (0.4-2.0) Calcium Level 6.0 MG/DL (8.5-10.1) Protein Corrected Calcium 7.2 MG/DL (8.5-10.1) Alkaline Phosphatase 34 U/L (45-117) Total Creatine Kinase 31 U/L (39-308) Total Protein 4.5 GM/DL (6.4-8.2) Albumin 1.5 GM/DL (3.4-5.0) Urine Protein 30 mg/dL (NEG-TRACE) Urine Occult Blood TRACE (NEG) Urine Leukocyte Esterase TRACE (NEG) Urine Mucus FEW /lpf (OCC) White Blood Count 13.6 TH/MM3 11.4 TH/MM3 (4.0-11.0) (4.0-11.0) Red Blood Count 2.31 MIL/MM3 3.08 MIL/MM3 (4.50-5.90) (4.50-5.90) Neutrophils (%) (Auto) 87.7 % (16.0-70.0) Lymphocytes (%) (Auto) 5.3 % (9.0-44.0) Neutrophils # (Auto) 11.9 TH/MM3 (1.8-7.7) Lymphocytes # (Auto) 0.7 TH/MM3 (1.0-4.8) Platelet Count 118 TH/MM3 (150-450) Fibrinogen 182 mg/dL (227-377) Test 09/06/16 09/06/16 05:05 12:00 Red Blood Count 2.55 MIL/MM3 2.28 MIL/MM3 (4.50-5.90) (4.50-5.90) Hemoglobin 8.0 GM/DL 6.1 GM/DL (13.0-17.0) (13.0-17.0) Hematocrit 22.4 % 18.3 % (39.0-51.0) (39.0-51.0) Platelet Count 124 TH/MM3 122 TH/MM3 (150-450) (150-450) Neutrophils (%) (Auto) 79.0 % (16.0-70.0) Monocytes (%) (Auto) 9.0 % (0.0-8.0) Neutrophils # (Auto) 8.6 TH/MM3 (1.8-7.7) Monocytes # (Auto) 1.0 TH/MM3 (0-0.9) Prothrombin Time 17.2 SEC 16.1 SEC (9.8-11.6) (9.8-11.6) Sodium Level 149 MEQ/L (136-145) Chloride Level 117 MEQ/L (98-107) Blood Urea Nitrogen 35 MG/DL (7-18) Estimat Glomerular Filtration 62 ML/MIN (>89) Rate Random Glucose 126 MG/DL (74-106) Calcium Level 5.7 MG/DL (8.5-10.1) Protein Corrected Calcium 7.5 MG/DL (8.5-10.1) Alkaline Phosphatase 23 U/L (45-117) Troponin I 0.17 NG/ML (0.02-0.05) Total Protein 3.3 GM/DL (6.4-8.2) Albumin 1.5 GM/DL (3.4-5.0) White Blood Count 13.2 TH/MM3 (4.0-11.0) Mean Corpuscular Hemoglobin 26.8 PG (27.0-34.0) Red Cell Distribution Width 19.2 % (11.6-17.2) Activated Partial 35.3 SEC Thromboplast Time (24.3-30.1) Imaging Chest x-ray portable which was personally reviewed: Elevated right hemidiaphragm , lung fiore otherwise appear clear Hospital Course 09/06: Persistently hypotensive overnight requiring norepinephrine. When I arrived in the morning, his hemoglobin had dropped from 9 to 8 despite blood product administration. He was tachycardic to the 120s and hypotensive with systolics in the 80s. I immediately ordered 4 units packed red blood cells, 4 units fresh frozen plasma, and 1 unit of platelet empirically for hemorrhagic shock. These pressures were given through a cordis introducer sheath that he previously had. I also placed right radial arterial line, see separate procedure note for details. At this point, Dr. Menjivar saw and evaluated the patient and felt that his new somnolence and he was not moving the right side of his body, and he was very concerned that his anemia and hypotension caused a worsening increase in the size and distribution of his prior stroke. At this point I had a long conversation with Dr. Menjivar and the family at which point we decided that the patient would not want aggressive measures if we had worsening of the stroke. The plan was at this point to give the blood products , and if the patient was hemodynamically stable, we would go down for stat MRI. If the patient in fact have a worsening stroke, we will transition to comfort measures this time. If the patient did not have a stroke, we would proceed with aggressive measures and EGD emergently. At this point, the patient was no longer protecting his airway and had vomiting with hematemesis and was becoming hypoxic. I again had a discussion with the family and we decided that temporary intubation with the goal of prognostic evaluation with MRI was acceptable to the patient, even though he was previously DNR/DNI. Thus we proceeded with endotracheal intubation, please see procedure note for details, with the sole goal of controlling his airway and improving his hypoxic respiratory failure for a short time while we got more information regarding his care. However, despite maximal efforts, the patient' s GI bleed became more vigorous, and he became more hemodynamically unstable. We gave more blood products and stat IV fluid boluses and attempt to restore hemodynamic stability. We had rising vasopressors. I remained at bedside as we attempt to stabilize outpatient. I again discussed his care with the family , and I expressed that although we have a plan of evaluating his brain with MRI , the patient was at this point too unstable in hemorrhagic shock despite almost 20 units of blood product administration, and regardless of the MRI or even if we taken for emergent EGD, given his age and comorbidities and the fact that he was hypotensive and very anemic, it is unlikely that he would recover from this event. If he did recover from this event, it likely would be a long- term mechanical ventilation with multiple procedures. The family stated overwhelmingly this is not what he would want, and he would want to be allowed to peacefully. At this point we decided collectively as a healthcare team that the patient would want to be made comfortable and transition to palliation. The patient was transitioned to palliation and with his family at bedside at 15:09. Yosi Alanis MD Sep 06, 2016 19:05
[2016-09-06] MEDS ORDERED: levETIRAcetam INJ 1,500 MG in SODIUM CHLORIDE 0.9% INJ 100 ML IV SCH ×4 (20:00)
== END 2016-09-06 17:56 | disposition expired | DRG 377 ==
LOC: N03B 15:31
PROVIDERS: ADMIT Internal Medicine Critical Care Medicine; ATTEND Internal Medicine Critical Care Medicine
PROC: 30233K1 Transfusion of Nonautologous Frozen Plasma into Peripheral Vein, Percutaneous Approach (ICD-10-PCS; principal; 2016-09-05)
PROC: 30233N1 Transfusion of Nonautologous Red Blood Cells into Peripheral Vein, Percutaneous Approach (ICD-10-PCS; 2016-09-05)
PROC: 30233R1 Transfusion of Nonautologous Platelets into Peripheral Vein, Percutaneous Approach (ICD-10-PCS; 2016-09-05)
PROC: 06HN33Z Insertion of Infusion Device into Left Femoral Vein, Percutaneous Approach (ICD-10-PCS; 2016-09-05)
PROC: 03HY32Z Insertion of Monitoring Device into Upper Artery, Percutaneous Approach (ICD-10-PCS; 2016-09-06)
PROC: 5A1935Z Respiratory Ventilation, Less than 24 Consecutive Hours (ICD-10-PCS; 2016-09-06)
PROC: 0BH17EZ Insertion of Endotracheal Airway into Trachea, Via Natural or Artificial Opening (ICD-10-PCS; 2016-09-06)
DX: K26.4 Chronic or unspecified duodenal ulcer with hemorrhage (principal); J96.91 Respiratory failure, unspecified with hypoxia; D68.32 Hemorrhagic disorder due to extrinsic circulating anticoagulants; R56.9 Unspecified convulsions; I95.9 Hypotension, unspecified; I48.91 Unspecified atrial fibrillation; I69.351 Hemiplegia and hemiparesis following cerebral infarction affecting right dominant side; D62 Acute posthemorrhagic anemia; K92.0 Hematemesis; I65.22 Occlusion and stenosis of left carotid artery; Z86.73 Personal history of transient ischemic attack (TIA), and cerebral infarction without residual deficits; T45.525A Adverse effect of antithrombotic drugs, initial encounter; I25.10 Atherosclerotic heart disease of native coronary artery without angina pectoris; E78.5 Hyperlipidemia, unspecified; I12.9 Hypertensive chronic kidney disease with stage 1 through stage 4 chronic kidney disease, or unspecified chronic kidney disease; N18.9 Chronic kidney disease, unspecified; Z66 Do not resuscitate; I46.9 Cardiac arrest, cause unspecified; Z51.5 Encounter for palliative care
CPT/HCPCS: 31500; 36430; 36556; 70450; 71010; 74176; 76937; 80053; 81001; 82550; 83605; 83735; 84100; 84484; 85014; 85018; 85025; 85027; 85384; 85610; 85730; 86850; 86900; 86901; 86920; 86927; 94002; 95819; C9113; C9132; C9254; J0610; J1953; J1980; J2060; J2250; J2270; J3430; J7030; J7050; P9016; P9017; P9021; P9035; P9045